=== PATIENT | male | born 1960 | race Caucasian/White ===

== ENCOUNTER → 2018-09-13 | Day surgery (SDC) | payer OTHER ==
[2018-09-10 08:13] VITALS: BMI 34.9
[~2018-09-13] MED LIST: LACTATED RINGERS 1,000 ML IV ONE; LACTATED RINGERS 1,000 ML IV SCH; LIDOCAINE 1% 20 ML VIAL (10MG/ML) FOR IV START INTRADERMA ONE; LIDOCAINE 1% INJ 10MG/ML (20 ML MDV) ONE; PROPOFOL 10 MG/ML 20 ML VIAL IV ONE
[2018-09-13 10:36] VITALS: RESP 18; TEMP 97.8
[2018-09-13 10:45] LABS: Glucose,Whole Blood 112 mg/dL (75-99)
[2018-09-13 12:50] VITALS: BP 138/82; PULSE 56
--- NOTE | 2018-09-13 13:36 | P.PCN ---
Date of Procedure: 09/13/18 Procedure(s) Performed: Procedure: Colonoscopy and polypectomy. Preoperative diagnosis: Screening for neoplasia. Postoperative diagnosis: 1. Small right colon polyp snared but no large polyps or cancer. 2. Low-grade internal hemorrhoids without bleeding at the time of this exam. Preparation: HalfLytely prep. Sedation: Was provided by anesthesia. Brief clinical history: The patient is a 58-year-old male who is scheduled for this evaluation for screening for neoplasia. The patient had a prior exam in 2011. He has no abdominal complaints, bleeding or anemia. He has been reporting some fatigability. Procedure: With the patient on his left lateral decubitus position and after informed consent and adequate sedation, the perianal area was inspected and it did not show any fissures or fistulas. There were no masses felt on digital rectal examination. The Olympus CFH 190L video colonoscope was then inserted in the rectum in the usual fashion and advanced to the cecum. There was a small polyp in the right colon which was snared and retrieved by suction but there were no large polyps or cancer. No obvious diverticular disease or other pathology. I retroflexed the endoscope in the rectum before the endoscope was withdrawn. Low-grade internal hemorrhoids were noted with no evidence of bleeding. The patient tolerated the procedure well. Plan: The patient was reassured. Discussed dietary measures and local care for hemorrhoids. He will follow up with you as planned and I recommended repeat exam in 5 years.
== END | disposition home or self-care (01) ==
LOC: ORWHC2ENDO 10:13
DX: Z12.11 Encounter for screening for malignant neoplasm of colon (principal); K64.8 Other hemorrhoids; D12.2 Benign neoplasm of ascending colon; E11.9 Type 2 diabetes mellitus without complications; E78.5 Hyperlipidemia, unspecified; M19.90 Unspecified osteoarthritis, unspecified site; G47.33 Obstructive sleep apnea (adult) (pediatric); F32.9 Major depressive disorder, single episode, unspecified; Z79.899 Other long term (current) drug therapy
CPT/HCPCS: 88305; 45385; J2001; J2704

== ENCOUNTER → 2020-04-13 | Outpatient (CLI) | payer OTHER | END | disposition home or self-care (01) | LOC: LABWHC1 13:40 | PROVIDERS: ATTEND Nurse Practitioner Family | DX: Z20.822 Contact with and (suspected) exposure to COVID-19 (principal); J02.9 Acute pharyngitis, unspecified; R06.02 Shortness of breath; R06.2 Wheezing | CPT/HCPCS: U0003; C9803; U0005 ==

== ENCOUNTER → 2021-02-22 | Outpatient (CLI) | payer OTHER | END | disposition home or self-care (01) | LOC: LABPAT 11:07 | PROVIDERS: ATTEND Orthopaedic Surgery | DX: Z01.812 Encounter for preprocedural laboratory examination (principal); M17.12 Unilateral primary osteoarthritis, left knee | CPT/HCPCS: 87070 ==

== ENCOUNTER → 2021-02-27 | Outpatient (CLI) | payer OTHER ==
[2021-02-27 16:54] LABS: Basophils # (A) 0.1 k/uL (0-0.2); Basophils % (A) 2 %; Eosinophils # (A) 0.1 k/uL (0-0.7); Eosinophils % (A) 2 %; HGB 15.7 gm/dL (13.0-17.5); Lymphocytes # (A) 2.3 k/uL (1.0-4.8); Lymphocytes % (A) 50 %; MCH 31.6 pg (25.0-35.0); MCHC 34.8 g/dL (31.0-37.0); MCV 90.7 fL (80.0-100.0); Mean Platelet Volume 8.8; Monocytes # (A) 0.4 k/uL (0-1.0); Monocytes % (A) 9 %; Neutrophils # (A) 1.7 k/uL (1.3-7.7); Neutrophils % (A) 36 %; Platelet Count 218 k/uL (150-450); RBC 4.96 m/uL (4.30-5.90); RDW 14.2 % (11.5-15.5); WBC 4.6 k/uL (3.8-10.6)
[2021-02-27 17:03] LABS: Calcium 9.5 mg/dL (8.4-10.2); Potassium 3.8 mmol/L (3.5-5.1)
[2021-02-27 17:21] LABS: INR 0.9 (<1.2); Prothrombin Time 10.1 sec (9.0-12.0)
== END | disposition home or self-care (01) ==
LOC: LABPAT 15:55
PROVIDERS: ATTEND Orthopaedic Surgery
DX: Z01.812 Encounter for preprocedural laboratory examination (principal); M17.12 Unilateral primary osteoarthritis, left knee
CPT/HCPCS: 80048; 85025; 85610

== ENCOUNTER 2021-04-05 19:13 | Inpatient (IN) | payer OTHER ==
[2021-04-05] MEDS ORDERED: SODIUM CHLORIDE 0.9% 1,000 ML IV ONE (19:26)
[2021-04-05] MEDS ORDERED: IBUPROFEN 600 MG TAB PO STA (19:27)
[2021-04-05] MEDS ORDERED: ACETAMINOPHEN TAB 500 MG TAB PO STA (19:27)
[2021-04-05] MEDS ORDERED: SODIUM CHLORIDE 0.9% 500 ML 500 ML IV ONE (19:28)
--- NOTE | 2021-04-05 19:31 | ED ---
General Adult HPI - General Source: patient, EMS, RN notes reviewed, old records reviewed Mode of arrival: EMS Limitations: physical limitation <Danny Justin - Last Filed: 04/05/21 21:12> <Danny Osman - Last Filed: 04/05/21 22:42> - General Chief complaint: Shortness of Breath Stated complaint: SOB Time Seen by Provider: 04/05/21 19:15 - History of Present Illness Initial comments: This is a 61-year-old male who presents emergency Department stating at 17 days ago he had knee surgery in the left knee. No longer on any anticoagulants. Patient comes in today because he has been having pain in the right shoulder and pain with deep breathing. Patient states she also feels short of breath. Candy ent denies chest pain or palpitations. Patient states the symptoms ongoing for the last few days. Patient denies any abdominal pain patient has nausea vomiting diarrhea. Patient denies headache patient denies numbness weakness. Patient states he's had the vaccines and the booster. (Danny Justin) - Related Data Home Medications Medication Instructions Recorded Confirmed Atorvastatin [Lipitor] 20 mg PO DAILY 11/15/19 04/05/21 PARoxetine HCL [Paxil] 40 mg PO DAILY 11/15/19 04/05/21 buPROPion HCL [Wellbutrin XL] 150 mg PO DAILY 11/15/19 04/05/21 hydroCHLOROthiazide [Hydrodiuril] 25 mg PO DAILY 11/15/19 04/05/21 lisinopriL [Zestril] 20 mg PO DAILY 11/15/19 04/05/21 hydrOXYzine HCL 25 mg PO BID 03/18/21 04/05/21 HYDROcodone/APAP 7.5-325MG [[place] 1 - 2 tab PO Q6HR PRN 04/05/21 04/05/21 7.5] metFORMIN HCL [Glucophage] 500 mg PO DAILY 04/05/21 04/05/21 Previous Rx's Medication Instructions Recorded traMADol HCl [Ultram] 50 mg PO Q6H PRN #24 tab 03/20/21 Allergies Allergy/AdvReac Type Severity Reaction Status Date / Time No Known Allergies Allergy Verified 04/05/21 21:55 Review of Systems ROS Other: All systems not noted in ROS Statement are negative. <Danny Justin - Last Filed: 04/05/21 21:12> ROS Other: All systems not noted in ROS Statement are negative. <Danny Osman Mikayla - Last Filed: 04/05/21 22:42> ROS Statement: Those systems with pertinent positive or pertinent negative responses have been documented in the HPI. Past Medical History Past Medical History: Diabetes Mellitus, Hyperlipidemia, Hypertension, Osteoarthritis (OA), Sleep Apnea/CPAP/BIPAP Additional Past Medical History / Comment(s): no cpap used, left knee pain History of Any Multi-Drug Resistant Organisms: None Reported Past Surgical History: Heart Catheterization, Orthopedic Surgery Additional Past Surgical History / Comment(s): juno knee arthroscopies, multiple left hand surgeries after injury Past Anesthesia/Blood Transfusion Reactions: Motion Sickness, Postoperative Nausea & Vomiting (PONV) Additional Past Anesthesia/Blood Transfusion Reaction / Comment(s): motion sickness when younger Past Psychological History: Anxiety, Depression Smoking Status: Former smoker Past Alcohol Use History: Occasional Past Drug Use History: None Reported - Past Family History Mother Family Medical History: No Reported History <Danny uJstin - Last Filed: 04/05/21 21:12> General Exam Limitations: physical limitation <JustinDanny - Last Filed: 04/05/21 21:12> General appearance: alert, in no apparent distress, anxious Head exam: Present: atraumatic, normocephalic, normal inspection Eye exam: Present: normal appearance, PERRL, EOMI. Absent: scleral icterus, conjunctival injection, periorbital swelling ENT exam: Present: normal exam, mucous membranes moist Neck exam: Present: normal inspection. Absent: tenderness, meningismus, lymphadenopathy Respiratory exam: Present: decreased breath sounds, prolonged expiratory. Absent: normal lung sounds bilaterally, respiratory distress, wheezes, rales, rhonchi, stridor Cardiovascular Exam: Present: regular rate, normal rhythm, normal heart sounds. Absent: systolic murmur, diastolic murmur, rubs, gallop, clicks GI/Abdominal exam: Present: soft, normal bowel sounds. Absent: distended, tenderness, guarding, rebound, rigid Extremities exam: Present: normal inspection, full ROM, normal capillary refill. Absent: tenderness, pedal edema, joint swelling, calf tenderness Back exam: Present: normal inspection Neurological exam: Present: alert, oriented X3, CN II-XII intact Psychiatric exam: Present: normal affect, normal mood Skin exam: Present: warm, dry, intact, normal color. Absent: rash <Danny Osman - Last Filed: 04/05/21 22:42> - General Exam Comments Initial Comments: GENERAL: Patient is well-developed and well-nourished. Patient is nontoxic and well- hydrated and is in mild distress. ENT: Neck is soft and supple. No significant lymphadenopathy is noted. Oropharynx is clear. Moist mucous membranes. Neck has full range of motion without eliciting any pain. EYES: The sclera were anicteric and conjunctiva were pink and moist. Extraocular movements were intact and pupils were equal round and reactive to light. Eyelids were unremarkable. PULMONARY: Unlabored respirations. Good breath sounds bilaterally. No audible rales rhonchi or wheezing was noted. CARDIOVASCULAR: There is a regular rate and rhythm without any murmurs gallops or rubs. ABDOMEN: Soft and nontender with normal bowel sounds. SKIN: Skin is clear with no lesions or rashes and otherwise unremarkable. NEUROLOGIC: Patient is alert and oriented x3. Cranial nerves II through XII are grossly intact. Motor and sensory are also intact. Normal speech, volume and content. Symmetrical smile. MUSCULOSKELETAL: Normal extremities with adequate strength and full range of motion. Incision on the left knee appears to be healing well there is no signs of infection. LYMPHATICS: No significant lymphadenopathy is noted PSYCHIATRIC: Normal psychiatric evaluation. (Danny Justin) Course <Danny Osman - Last Filed: 04/05/21 22:42> Vital Signs 04/05/21 04/05/21 19:14 19:21 Temperature 101.9 F H Pulse Rate 93 Respiratory 20 24 Rate Blood Pressure 138/89 O2 Sat by Pulse 92 L Oximetry - Reevaluation(s) Reevaluation #1: 04/05/21 22:40 medical record is reviewed (Danny Osman) Reevaluation #2: 04/05/21 22:40 symptoms improved patient is in no acute distress (Danny Osman) Reevaluation #3: 04/05/21 22:40 patient informed of results and questions are answered (Danny Osman) - Consultations Consultation #1: spoke with [facility] physicians who agree to admit the patient (Danny Osman) Medical Decision Making - Lab Data Result diagrams: 04/05/21 19:32 04/05/21 19:32 <Danny Justin - Last Filed: 04/05/21 21:12> - Lab Data Result diagrams: 04/05/21 19:32 04/05/21 19:32 - Radiology Data Radiology results: report reviewed (CTa positive for significant right-sided right lower lobe PE with infarct), image reviewed <Danny Osman - Last Filed: 04/05/21 22:42> - Medical Decision Making EKG shows sinus rhythm with occasional PVC at 91 bpm ME interval 148 QRS is 70 QT interval 310 QTC is 381 per patient's EKG shows no ST segment elevation however there is T-wave inversions in the inferior leads as well as V4 V5 and V6. Jacqui taking over the care of this patient at 9 PM (Danny Justin) 61 male to the emergency department todayF for evaluation patient presented today for evaluation of right-sided rib pain chest pain shortness of breath, patient was found to have fever patient is 2 weeks postop knee surgery, positive for PE will place on antibiotics secondary to concurrent fever, patient placed on heparin for PE and will see vascular surgery (Danny Osman) - Lab Data Lab Results 04/05/21 04/05/21 04/05/21 Range/Units 19:32 19:32 19:32 WBC 8.5 (3.8-10.6) k/uL RBC 3.92 L (4.30-5.90) m/uL Hgb 12.2 L D (13.0-17.5) gm/dL Hct 37.3 L (39.0-53.0) % MCV 95.3 (80.0-100.0) fL MCH 31.2 (25.0-35.0) pg MCHC 32.7 (31.0-37.0) g/dL RDW 14.7 (11.5-15.5) % Plt Count 306 (150-450) k/uL MPV 7.6 Neutrophils % 74 % Lymphocytes % 16 % Monocytes % 8 % Eosinophils % 0 % Basophils % 1 % Neutrophils # 6.3 (1.3-7.7) k/uL Lymphocytes # 1.3 (1.0-4.8) k/uL Monocytes # 0.7 (0-1.0) k/uL Eosinophils # 0.0 (0-0.7) k/uL Basophils # 0.0 (0-0.2) k/uL Sodium 134 L (137-145) mmol/L Potassium 3.9 (3.5-5.1) mmol/L Chloride 98 (98-107) mmol/L Carbon Dioxide 26 (22-30) mmol/L Anion Gap 10 mmol/L BUN 21 H (9-20) mg/dL Creatinine 0.97 (0.66-1.25) mg/dL Est GFR (CKD-EPI)AfAm >90 (>60 ml/min/1.73 sqM) Est GFR (CKD-EPI)NonAf 85 (>60 ml/min/1.73 sqM) Glucose 152 H (74-99) mg/dL Calcium 9.1 (8.4-10.2) mg/dL Total Bilirubin 0.8 (0.2-1.3) mg/dL AST 34 (17-59) U/L ALT 31 (4-49) U/L Alkaline Phosphatase 120 (38-126) U/L Troponin I (0.000-0.034) ng/mL Total Protein 7.0 (6.3-8.2) g/dL Albumin 3.6 (3.5-5.0) g/dL Coronavirus (PCR) Not Detected (Not Detectd) 04/05/21 Range/Units 19:32 WBC (3.8-10.6) k/uL RBC (4.30-5.90) m/uL Hgb (13.0-17.5) gm/dL Hct (39.0-53.0) % MCV (80.0-100.0) fL MCH (25.0-35.0) pg MCHC (31.0-37.0) g/dL RDW (11.5-15.5) % Plt Count (150-450) k/uL MPV Neutrophils % % Lymphocytes % % Monocytes % % Eosinophils % % Basophils % % Neutrophils # (1.3-7.7) k/uL Lymphocytes # (1.0-4.8) k/uL Monocytes # (0-1.0) k/uL Eosinophils # (0-0.7) k/uL Basophils # (0-0.2) k/uL Sodium (137-145) mmol/L Potassium (3.5-5.1) mmol/L Chloride (98-107) mmol/L Carbon Dioxide (22-30) mmol/L Anion Gap mmol/L BUN (9-20) mg/dL Creatinine (0.66-1.25) mg/dL Est GFR (CKD-EPI)AfAm (>60 ml/min/1.73 sqM) Est GFR (CKD-EPI)NonAf (>60 ml/min/1.73 sqM) Glucose (74-99) mg/dL Calcium (8.4-10.2) mg/dL Total Bilirubin (0.2-1.3) mg/dL AST (17-59) U/L ALT (4-49) U/L Alkaline Phosphatase (38-126) U/L Troponin I 0.015 (0.000-0.034) ng/mL Total Protein (6.3-8.2) g/dL Albumin (3.5-5.0) g/dL Coronavirus (PCR) (Not Detectd) Critical Care Time Critical Care Time: Yes Total Critical Care Time: 31 <Danny Osman - Last Filed: 04/05/21 22:42> Disposition <Danny Justin - Last Filed: 04/05/21 21:12> Is patient prescribed a controlled substance at d/c from ED?: No <Danny Osman - Last Filed: 04/05/21 22:42> Clinical Impression: Fever, Postoperative pain, Pulmonary embolism and infarction Disposition: ADMITTED IP TO THIS HOSP Condition: Serious Referrals: Lourdes Hinkle MD [Primary Care Provider] - 1-2 days
[2021-04-05 19:50] LABS: Basophils % (A) 1 %; Eosinophils % (A) 0 %; HCT 37.3 % (39.0-53.0); Lymphocytes # (A) 1.3 k/uL (1.0-4.8); Lymphocytes % (A) 16 %; MCH 31.2 pg (25.0-35.0); MCHC 32.7 g/dL (31.0-37.0); MCV 95.3 fL (80.0-100.0); Mean Platelet Volume 7.6; Monocytes # (A) 0.7 k/uL (0-1.0); Monocytes % (A) 8 %; Neutrophils # (A) 6.3 k/uL (1.3-7.7); Neutrophils % (A) 74 %; Platelet Count 306 k/uL (150-450); RBC 3.92 m/uL (4.30-5.90); RDW 14.7 % (11.5-15.5); WBC 8.5 k/uL (3.8-10.6)
--- NOTE | 2021-04-05 19:57 | XR ---
EXAMINATION TYPE: XR chest 1V portable DATE OF EXAM: 04/05/2021 COMPARISON: 04/24/2020 HISTORY: Short of breath TECHNIQUE: Single view FINDINGS: There is some mild subsegmental atelectasis at the lung bases. There is poor inspiration. T here is no heart failure. Heart size is normal. There are no hilar masses. IMPRESSION: Mild subsegmental atelectasis and interstitial density is mostly new compared to old exam . Normal heart.
[2021-04-05 20:00] LABS: HGB 12.2 gm/dL (13.0-17.5)
[2021-04-05 20:06] LABS: ALT 31 U/L (4-49); AST 34 U/L (17-59); African American GFR (CKD) >90 (>60 ml/min/1.73 sqM); Albumin 3.6 g/dL (3.5-5.0); Alkaline Phosphatase 120 U/L (38-126); Anion Gap 10 mmol/L; Blood Urea Nitrogen 21 mg/dL (9-20); Calcium 9.1 mg/dL (8.4-10.2); Carbon Dioxide 26 mmol/L (22-30); Chloride 98 mmol/L (98-107); Glucose 152 mg/dL (74-99); Non-African American GFR(CKD) 85 (>60 ml/min/1.73 sqM); Potassium 3.9 mmol/L (3.5-5.1); Sodium 134 mmol/L (137-145); Total Bilirubin 0.8 mg/dL (0.2-1.3)
--- NOTE | 2021-04-05 22:18 | CT ---
EXAMINATION TYPE: CT chest angio for PE DATE OF EXAM: 04/05/2021 COMPARISON: None HISTORY: PE CT DLP: 898.7 mGycm Automated exposure control for dose reduction was used. CONTRAST: Performed with IV Contrast, patient injected with 100 mL of Isovue 370. Images obtained from the thoracic inlet to the diaphragm with IV contrast. There are 3-D post processed images. There is some mild infiltrate and atelectasis at both posterior lung bases. Heart size is normal. The re is no pericardial effusion. There is no pleural effusion. There is minimal pleural thickening righ t posterior lung base. There is no mediastinal adenopathy. There are no hilar masses. There are multiple filling defects in the right lower lobe pulmonary artery. The thoracic spine is intact. There is no compression fracture. Sternum is intact. Visualized upper a bdominal soft tissues are intact. IMPRESSION: Large emboli in the right lower lobe pulmonary artery branches extending into the origin of the right lower lobe pulmonary artery. Infiltrates in the right lower lobe with pleural thickening consistent with pulmonary infarct. No evidence of right heart strain. Normal heart. Exam was discussed with emergency room staff at 10:15 PM.
[2021-04-05] MEDS ORDERED: HEPARIN SODIUM 1,000 UN/ML (10ML VL) IV PRN (22:32)
[2021-04-05] MEDS ORDERED: HEPARIN SODIUM 1,000 UN/ML (10ML VL) IV ONE (22:32)
[2021-04-05] MEDS ORDERED: NALOXONE 0.4 MG/ML 1 ML VIAL IV PRN (22:32)
[2021-04-05] MEDS ORDERED: ACETAMINOPHEN TAB 325 MG TAB PO PRN (22:32)
[2021-04-05] MEDS ORDERED: ONDANSETRON 4 MG/2 ML VIAL IVP PRN (22:32)
[2021-04-05] MEDS ORDERED: IBUPROFEN 400 MG TAB PO PRN (22:32)
[2021-04-05] MEDS ORDERED: KETOROLAC 15 MG/ML 1 ML VIAL IVP STA (22:37)
[2021-04-05] MEDS ORDERED: AZITHROMYCIN 500 MG in SODIUM CHLORIDE 0.9% 250 ML IVPB ONE (23:00)
[2021-04-05] MEDS: HEPARIN SOD,PORK IN 0.45% NACL 25,000 UNIT in 0.45% NACL 1 250ML.BAG IV SCH (23:12)
[2021-04-05] MEDS: SODIUM CHLORIDE 0.9% 1,000 ML IV SCH (23:18)
[2021-04-06] MEDS: MORPHINE SULFATE 4 MG/ML SYRINGE IV PRN ×3 (01:29→21:33)
--- NOTE | 2021-04-06 05:47 | P.HPIM ---
History of Present Illness H&P Date: 04/05/21 Chief Complaint: Right-sided shoulder pain 61-year-old male with hypertension diabetes mellitus Patient comes in with right-sided shoulder pain for the past 3 days patient re calls having right knee surgery about 2-3 weeks ago for right knee replacement. He was briefly on anticoagulation postop. Patient comes in having some fevers and right shoulder pain worse with deep breaths and movement. He also reports shortness of breath with walking moving short distances also reports some coughing Patient denies any hemoptysis denies any GI bleeding patient denies any sick contacts recent travel. Patient quit smoking 18 years ago he denies any drug abuse and he would occasionally drinks. Patient is vaccinated and boosted against Covid In the ED upon further evaluation found to have right-sided PE with right-sided pulmonary infarct with no evidence of right heart strain patient admitted for evaluation by vascular surgery and started on heparin drip. Patient denies any history of DVT Review of Systems Pertinent positives as noted in HPI. All other systems were reviewed and are negative Past Medical History Past Medical History: Diabetes Mellitus, Hyperlipidemia, Hypertension, Osteoa rthritis (OA), Sleep Apnea/CPAP/BIPAP Additional Past Medical History / Comment(s): no cpap used, left knee pain History of Any Multi-Drug Resistant Organisms: None Reported Past Surgical History: Heart Catheterization, Orthopedic Surgery Additional Past Surgical History / Comment(s): juno knee arthroscopies, multiple left hand surgeries after injury Past Anesthesia/Blood Transfusion Reactions: Motion Sickness, Postoperative Nausea & Vomiting (PONV) Additional Past Anesthesia/Blood Transfusion Reaction / Comment(s): motion sickness when younger Past Psychological History: Anxiety, Depression Smoking Status: Former smoker Past Alcohol Use History: Occasional Additional Past Alcohol Use History / Comment(s): quit smoking 20 yrs ago, smoked for < 1 yr Past Drug Use History: None Reported - Past Family History Mother Family Medical History: No Reported History Medications and Allergies Home Medications Medication Instructions Recorded Confirmed Type Atorvastatin [Lipitor] 20 mg PO DAILY 11/15/19 04/05/21 History PARoxetine HCL [Paxil] 40 mg PO DAILY 11/15/19 04/05/21 History buPROPion HCL [Wellbutrin XL] 150 mg PO DAILY 11/15/19 04/05/21 History hydroCHLOROthiazide [Hydrodiuril] 25 mg PO DAILY 11/15/19 04/05/21 History lisinopriL [Zestril] 20 mg PO DAILY 11/15/19 04/05/21 History hydrOXYzine HCL 25 mg PO BID 03/18/21 04/05/21 History traMADol HCl [Ultram] 50 mg PO Q6H PRN #24 tab 03/20/21 04/05/21 Rx HYDROcodone/APAP 7.5-325MG [[place] 1 - 2 tab PO Q6HR PRN 04/05/21 04/05/21 History 7.5] metFORMIN HCL [Glucophage] 500 mg PO DAILY 04/05/21 04/05/21 History Allergies Allergy/AdvReac Type Severity Reaction Status Date / Time No Known Allergies Allergy Verified 04/05/21 21:55 Physical Exam Vitals: Vital Signs Temp Pulse Resp BP Pulse Ox 04/06/21 03:12 69 18 114/59 94 L 04/06/21 02:17 98.7 F 04/06/21 01:36 76 18 118/68 95 04/06/21 00:08 67 18 120/62 96 04/05/21 19:21 24 04/05/21 19:14 101.9 F H 93 20 138/89 92 L Intake and Output 04/05/21 04/05/21 04/06/21 14:59 22:59 06:59 Other: Weight 131.542 kg 131.542 kg Constitutional: No acute distress, conversant, pleasant Eyes: Anicteric sclerae, moist conjunctiva, Pupils equal round reactive to light ENMT: NC/AT Oropharynx clear, no erythema, or exudates Neck: Supple, , no masses, or JVD No carotid bruits No thyromegaly Lungs: Clear to auscultation Clear to percussion Normal respiratory effort, no accessory muscle use Cardiovascular: Heart regular in rate and rhythm, No murmurs, gallops, or rubs No peripheral edema Abdominal: Soft Nontender, no guarding, rebound or rigidity Abdomen moving with respiration Normoactive bowel sounds No hepatomegaly, No splenomegaly No palpable mass No abdominal wall hernia noted Skin: Normal temperature, tone, texture, turgor No induration No subcutaneous nodules No rash, lesions No ulcers Extremities: No digital cyanosis No clubbing Pedal pulses intact and symmetrical Radial pulses intact and symmetrical No calf tenderness Psychiatric: Alert and oriented to person, place and time Appropriate affect fair judgement Neuro Muscles Strength 5/5 in all 4 extremities Sensation to light touch grossly present throughout Cranial nerves II-XII grossly intact No focal sensory deficits Lymphatics: no palpable cervical or supraclavicular , or inguinal lymph nodes Results CBC & Chem 7: 04/05/21 19:32 04/05/21 19:32 Labs: Abnormal Lab Results - Last 24 Hours (Table) 04/05/21 04/05/21 Range/Units 19:32 19:32 RBC 3.92 L (4.30-5.90) m/uL Hgb 12.2 L D (13.0-17.5) gm/dL Hct 37.3 L (39.0-53.0) % Sodium 134 L (137-145) mmol/L BUN 21 H (9-20) mg/dL Glucose 152 H (74-99) mg/dL Thrombosis Risk Factor Assmnt - Choose All That Apply Any of the Below Risk Factors Present?: Yes Each Factor Represents 1 point: Age 41-60 years, History of prior major surgery (<1month), Obesity (BMI >25) Thrombosis Risk Factor Assessment Total Risk Factor Score: 3 Thrombosis Risk Factor Assessment Level: Moderate Risk Assessment and Plan Assessment: Acute PE provoked by recent surgery Patient initiated on heparin drip IV fluid hydration normal saline Monitor vital signs Cardiac monitoring Past surgery evaluation Echocardiogram CT angiogram the chest showed right pulmonary infarct with right PE no evidence of RV strain Doppler and oxygen as needed Pain control Chronic conditions Diabetes mellitus, insulin sliding scale Hypertension resume the pressure meds Patient is full code Hospital stay less than 2 midnights Anticipated discharge home DVT prophylaxis on heparin drip for PE
[2021-04-06] MEDS: SODIUM CHLORIDE 0.9% 1,000 ML IV SCH ×3 (07:05→23:37)
[2021-04-06 07:12] LABS: Glucose,Whole Blood 150 mg/dL (75-99)
[2021-04-06 07:13] LABS: Basophils % (A) 1 %; Eosinophils # (A) 0.1 k/uL (0-0.7); Eosinophils % (A) 1 %; HGB 10.2 gm/dL (13.0-17.5); Hypochromasia Slight; Lymphocytes # (A) 1.2 k/uL (1.0-4.8); Lymphocytes % (A) 24 %; MCH 31.5 pg (25.0-35.0); MCV 95.6 fL (80.0-100.0); Mean Platelet Volume 8.4; Monocytes # (A) 0.7 k/uL (0-1.0); Monocytes % (A) 13 %; Neutrophils % (A) 60 %; Platelet Count 221 k/uL (150-450); RBC 3.24 m/uL (4.30-5.90); RDW 14.3 % (11.5-15.5); WBC 5.1 k/uL (3.8-10.6)
[2021-04-06] MEDS: INSULIN ASPART (NovoLOG) 100 UNIT/ML VIAL SQ SCH ×4 (07:15→21:03)
[2021-04-06 07:24] LABS: ALT 23 U/L (4-49); AST 23 U/L (17-59); African American GFR (CKD) >90 (>60 ml/min/1.73 sqM); Albumin 2.6 g/dL (3.5-5.0); Alkaline Phosphatase 99 U/L (38-126); Anion Gap 4 mmol/L; Blood Urea Nitrogen 17 mg/dL (9-20); Calcium 8.3 mg/dL (8.4-10.2); Carbon Dioxide 27 mmol/L (22-30); Chloride 102 mmol/L (98-107); Glucose 159 mg/dL (74-99); Magnesium 1.8 mg/dL (1.6-2.3); Non-African American GFR(CKD) >90 (>60 ml/min/1.73 sqM); Phosphorus 3.6 mg/dL (2.5-4.5); Potassium 3.6 mmol/L (3.5-5.1); Sodium 133 mmol/L (137-145); Total Bilirubin 0.7 mg/dL (0.2-1.3); Total Protein 5.7 g/dL (6.3-8.2)
[2021-04-06 08:39] LABS: Appearance,Urine Clear (Clear); Bilirubin,Urine Negative (Negative); Blood,Urine Negative (Negative); Color,Urine Yellow; Glucose,Urine (UA) Negative (Negative); Ketones,Urine Negative (Negative); Leukocyte Esterase,Urine Negative (Negative); Nitrite,Urine Negative (Negative); PH, Urine 5.5 (5.0-8.0); Protein,Urine Trace (Negative); Specific Gravity,Urine 1.036 (1.001-1.035); Urobilinogen,Urine <2.0 mg/dL (<2.0)
[2021-04-06] MEDS: hydroCHLOROthiazide 25 MG TAB PO SCH (08:49)
[2021-04-06] MEDS: buPROPion XL 150 MG TAB.ER.24H PO SCH (08:49)
[2021-04-06] MEDS: PARoxetine 20 MG TAB PO SCH (08:50)
[2021-04-06] MEDS: lisinopriL 20 MG TAB PO SCH (08:50)
[2021-04-06] MEDS: hydrOXYzine HCL 25 MG TAB PO SCH ×2 (08:50→21:03)
[2021-04-06] MEDS: ATORVASTATIN 20 MG TAB PO SCH (08:50)
[2021-04-06] MEDS: HEPARIN SOD,PORK IN 0.45% NACL 25,000 UNIT in 0.45% NACL 1 250ML.BAG IV SCH (09:20)
--- NOTE | 2021-04-06 11:00 | ECHOF ---
Referral Reason:PE MEASUREMENTS -------- HEIGHT: 180.3 cm WEIGHT: 131.5 kg BP: RVIDd: 3.4 cm (< 3.3) IVSd: 1.4 cm (0.6 - 1.1) LVIDd: 3.8 cm (3.9 - 5.3) LVPWd: 1.6 cm (0.6 - 1.1) IVSs: 1.9 cm LVIDs: 2.2 cm LVPWs: 2.2 cm Ao Diam: 3.2 cm (2.0 - 3.7) AV Cusp: 2.2 cm (1.5 - 2.6) LA Diam: 2.4 cm (2.7 - 3.8) MV EXCURSION: 13.275 mm (> 18.000) MV EF SLOPE: 118 mm/s (70 - 150) EPSS: 0.9 cm MV E Polo: 0.75 m/s MV DecT: 224 ms MV A Polo: 0.87 m/s MV E/A Ratio: 0.86 RAP: 5.00 mmHg RVSP: 14.00 mmHg FINDINGS -------- This was a technically difficult study with suboptimal views. The left ventricular size is normal. There is moderate concentric left ventricular hypertrophy. O verall left ventricular systolic function is low-normal with, an EF between 50 - 55 %. The right ventricle is mildly enlarged. The left atrial size is normal. The right atrial size is normal. Lumason used The aortic valve is trileaflet and appears structurally normal. The mitral valve is normal. There is trace mitral regurgitation. The tricuspid valve appears structurally normal. Trace tricuspid regurgitation present. Right roopa tricular systolic pressure is normal at < 35 mmHg. The pulmonic valve was not well visualized. The aortic root size is normal. Normal inferior vena cava with normal inspiratory collapse consistent with estimated right atrial pre ssure of 5 mmHg. There is no pericardial effusion. CONCLUSIONS -------- 1. The left ventricular size is normal. 2. There is moderate concentric left ventricular hypertrophy. 3. Overall left ventricular systolic function is low-normal with, an EF between 50 - 55 %. 4. The right ventricle is mildly enlarged. 5. There is trace mitral regurgitation. 6. Trace tricuspid regurgitation present. 7. There is no pericardial effusion. INTERVENTIONAL SALE CONSULTANT: Uzma Mcdermott WHITNEY
--- NOTE | 2021-04-06 11:09 | P.PN ---
Subjective Progress Note Date: 04/06/21 Principal diagnosis: Sob Patient is feeling much better than yesterday. His last fever was last evening, he is 99.1 this am. Breathing is improved and he is ambulating without dif ficulties. He still has cough and pleuritic chest pain. Objective - Vital Signs Vital signs: Vital Signs Temp 98.3 F 04/06/21 04:08 Pulse 65 04/06/21 04:08 Resp 20 04/06/21 04:08 BP 115/63 04/06/21 04:08 Pulse Ox 97 04/06/21 04:08 Intake & Output 04/05/21 04/06/21 04/06/21 18:59 06:59 18:59 Intake Total 413.269 Balance 413.269 Weight 131.542 kg Intake: Intake, IV Titration 233.269 Amount Heparin Sod,Pork in 0.45% 233.269 NaCl 25,000 unit In 0.45 % NaCl 1 250ml.bag @ 17.5 UNITS/KG/HR 23.02 mls/hr IV .[id number] [facility] Rx#: [id number] Oral 180 Other: Voiding Method Toilet # Voids 1 - Exam Constitutional: No acute distress, conversant, pleasant Eyes:Anicteric sclerae, moist conjunctiva, no lid-lag, PERRLA, ENMT: Oropharynx clear, no erythema, exudates Neck: Supple, FROM, no masses, or JVD, No carotid bruits, No thyromegaly Lungs: Clear to auscultation, Clear to percussion, Normal respiratory effort, no accessory muscle use Cardiovascular: Heart regular in rate and rhythm, No murmurs, gallops, or rubs, No peripheral edema Abdominal: Soft, Nontender, no guarding, rebound or rigidity, Normoactive bowel sounds, No hepatomegaly, No splenomegaly, No palpable mass Skin: Normal temperature, tone, texture, turgor, no induration, No subcutaneous nodules, No rash, lesions, No ulcers Extremities: No digital cyanosis, No clubbing, Pedal pulses intact and symmetric al, Radial pulses intact and symmetrical, No calf tenderness Psychiatric: Alert and oriented to person, place and time, appropriate affect, intact judgement Neuro: Muscles Strength 5/5 in all 4 extremities, Sensation to light touch grossly present throughout, Cranial nerves II-XII grossly intact, no focal sensory deficits - Labs CBC & Chem 7: 04/06/21 05:44 04/06/21 05:44 Labs: Abnormal Lab Results - Last 24 Hours (Table) 04/05/21 04/05/21 04/05/21 Range/Units 08:36 19:32 19:32 RBC 3.92 L (4.30-5.90) m/uL Hgb 12.2 L D (13.0-17.5) gm/dL Hct 37.3 L (39.0-53.0) % APTT (22.0-30.0) sec Sodium 134 L (137-145) mmol/L BUN 21 H (9-20) mg/dL Glucose 152 H (74-99) mg/dL POC Glucose (mg/dL) (75-99) mg/dL Calcium (8.4-10.2) mg/dL Total Protein (6.3-8.2) g/dL Albumin (3.5-5.0) g/dL Ur Specific [place] 1.036 H (1.001-1.035) Urine Protein Trace H (Negative) 04/06/21 04/06/21 04/06/21 Range/Units 05:44 05:44 05:44 RBC 3.24 L (4.30-5.90) m/uL Hgb 10.2 L (13.0-17.5) gm/dL Hct 31.0 L (39.0-53.0) % APTT 62.4 H (22.0-30.0) sec Sodium 133 L (137-145) mmol/L BUN (9-20) mg/dL Glucose 159 H (74-99) mg/dL POC Glucose (mg/dL) (75-99) mg/dL Calcium 8.3 L (8.4-10.2) mg/dL Total Protein 5.7 L (6.3-8.2) g/dL Albumin 2.6 L (3.5-5.0) g/dL Ur Specific [place] (1.001-1.035) Urine Protein (Negative) 04/06/21 Range/Units 07:11 RBC (4.30-5.90) m/uL Hgb (13.0-17.5) gm/dL Hct (39.0-53.0) % APTT (22.0-30.0) sec Sodium (137-145) mmol/L BUN (9-20) mg/dL Glucose (74-99) mg/dL POC Glucose (mg/dL) 150 H (75-99) mg/dL Calcium (8.4-10.2) mg/dL Total Protein (6.3-8.2) g/dL Albumin (3.5-5.0) g/dL Ur Specific [place] (1.001-1.035) Urine Protein (Negative) Assessment and Plan Plan: Acute PE provoked by recent surgery Patient initiated on heparin drip IV fluid hydration normal saline Monitor vital signs Cardiac monitoring CT angiogram the chest showed right pulmonary infarct with right PE no evidence of RV strain Echo with low normal EF. Doppler and oxygen as needed Pain control Fever/sepsis Sec to community aquired pneumonia Resume abx Follow up blood cx. Chronic conditions Diabetes mellitus, insulin sliding scale Hypertension resume the pressure meds Anticipated discharge home tomorrow DVT prophylaxis on heparin drip for PE
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
--- NOTE | 2021-04-06 11:44 | US ---
EXAMINATION TYPE: US venous doppler duplex LE DATE OF EXAM: 04/06/2021 11:34 AM COMPARISON: NONE CLINICAL HISTORY: pulmonary embolism. Swelling SIDE PERFORMED: bilateral TECHNIQUE: The lower extremity deep venous system is examined utilizing real time linear array sonog frederic with graded compression, doppler sonography and color-flow sonography. VESSELS IMAGED: Common Femoral Vein Deep Femoral Vein Greater Saphenous Vein * Femoral Vein Popliteal Vein Small Saphenous Vein * Proximal Calf Veins (* superficial vessels) Right Leg: no evidence of DVT Left Leg: *positive for DVT left lower femoral vein extending into popliteal vein Grayscale, color doppler, spectral doppler imaging performed of the deep veins of the bilateral lower extremities. IMPRESSION: Acute DVT in the left lower extremity is confirmed beginning mid to distal superficial fe moral vein level extending below the knee.
[2021-04-06 11:46] LABS: Glucose,Whole Blood 167 mg/dL (75-99)
[2021-04-06 16:58] LABS: Glucose,Whole Blood 116 mg/dL (75-99)
[2021-04-06] MEDS: APIXABAN 5 MG TAB PO SCH ×2 (18:05→20:35)
[2021-04-06 20:34] LABS: Glucose,Whole Blood 184 mg/dL (75-99)
[2021-04-06] MEDS: AZITHROMYCIN 500 MG in SODIUM CHLORIDE 0.9% 250 ML IVPB SCH (21:33)
[2021-04-07 06:53] LABS: Glucose,Whole Blood 148 mg/dL (75-99)
[2021-04-07] MEDS: SODIUM CHLORIDE 0.9% 1,000 ML IV SCH (06:54)
[2021-04-07] MEDS: INSULIN ASPART (NovoLOG) 100 UNIT/ML VIAL SQ SCH ×4 (07:11→20:20)
[2021-04-07] MEDS: hydrOXYzine HCL 25 MG TAB PO SCH ×2 (09:53→20:19)
[2021-04-07] MEDS: hydroCHLOROthiazide 25 MG TAB PO SCH (09:53)
[2021-04-07] MEDS: buPROPion XL 150 MG TAB.ER.24H PO SCH (09:53)
[2021-04-07] MEDS: PARoxetine 20 MG TAB PO SCH (09:53)
[2021-04-07] MEDS: lisinopriL 20 MG TAB PO SCH (09:53)
[2021-04-07] MEDS: APIXABAN 5 MG TAB PO SCH ×2 (09:54→20:19)
[2021-04-07] MEDS: ATORVASTATIN 20 MG TAB PO SCH (09:54)
[2021-04-07 11:01] LABS: Magnesium 2.1 mg/dL (1.6-2.3); Potassium 3.7 mmol/L (3.5-5.1)
[2021-04-07 12:28] LABS: Glucose,Whole Blood 133 mg/dL (75-99)
--- NOTE | 2021-04-07 12:45 | P.PN ---
Subjective Progress Note Date: 04/07/21 Principal diagnosis: Sob Currently feeling ok. Last fever was 100 last night. He started to require O2 per NC as well. He is on 3L currently. Objective - Vital Signs Vital signs: Vital Signs Temp 99 F 04/07/21 04:38 Pulse 87 04/07/21 04:38 Resp 18 04/07/21 04:38 BP 122/71 04/07/21 04:38 Pulse Ox 95 04/07/21 04:38 Intake & Output 04/06/21 04/07/21 04/07/21 18:59 06:59 18:59 Intake Total 413.269 180 Output Total 1000 350 Balance -586.731 -350 180 Intake: Intake, IV Titration 233.269 Amount Heparin Sod,Pork in 0.45% 233.269 NaCl 25,000 unit In 0.45 % NaCl 1 250ml.bag @ 17.5 UNITS/KG/HR 23.02 mls/hr IV .[id number] [facility] Rx#: [id number] Oral 180 180 Output: Urine 1000 350 Other: Voiding Method Toilet Toilet # Voids 1 - Exam Constitutional: No acute distress, conversant, pleasant Eyes:Anicteric sclerae, moist conjunctiva, no lid-lag, PERRLA, ENMT: Oropharynx clear, no erythema, exudates Neck: Supple, FROM, no masses, or JVD, No carotid bruits, No thyromegaly Lungs: Clear to auscultation, Clear to percussion, Normal respiratory effort, no accessory muscle use Cardiovascular: Heart regular in rate and rhythm, No murmurs, gallops, or rubs, No peripheral edema Abdominal: Soft, Nontender, no guarding, rebound or rigidity, Normoactive bowel sounds, No hepatomegaly, No splenomegaly, No palpable mass Skin: Normal temperature, tone, texture, turgor, no induration, No subcutaneous nodules, No rash, lesions, No ulcers Extremities: No digital cyanosis, No clubbing, Pedal pulses intact and symmetrical, Radial pulses intact and symmetrical, No calf tenderness Psychiatric: Alert and oriented to person, place and time, appropriate affect, intact judgement Neuro: Muscles Strength 5/5 in all 4 extremities, Sensation to light touch elbert ssly present throughout, Cranial nerves II-XII grossly intact, no focal sensory deficits - Labs CBC & Chem 7: 04/06/21 05:44 04/07/21 10:21 Labs: Abnormal Lab Results - Last 24 Hours (Table) 04/06/21 04/06/21 04/07/21 Range/Units 16:57 20:27 06:37 POC Glucose (mg/dL) 116 H 184 H 148 H (75-99) mg/dL 04/07/21 Range/Units 12:27 POC Glucose (mg/dL) 133 H (75-99) mg/dL Assessment and Plan Plan: Acute PE provoked by recent surgery Was on heparin drip, started on eliquis. IV fluid hydration normal saline Monitor vital signs Cardiac monitoring CT angiogram the chest showed right pulmonary infarct with right PE no evidence of RV strain Echo with low normal EF. Doppler showing right leg DVT. Fever/sepsis Sec to community aquired pneumonia Tylenol prn Resume abx Follow up blood cx. Chronic conditions Diabetes mellitus, insulin sliding scale Hypertension resume the pressure meds Anticipated discharge home tomorrow DVT prophylaxis on eliquis for PE
[2021-04-07 16:51] LABS: Glucose,Whole Blood 154 mg/dL (75-99)
[2021-04-07] MEDS ORDERED: DILTIAZEM DRIP BOLUS FROM BAG 1 MG SOLN IV ONE (17:52)
[2021-04-07] MEDS: DILTIAZEM 125 MG in SODIUM CHLORIDE 0.9% 100 ML IV SCH (18:40)
[2021-04-07] MEDS: AZITHROMYCIN 500 MG in SODIUM CHLORIDE 0.9% 250 ML IVPB SCH (20:19)
[2021-04-07] MEDS: MORPHINE SULFATE 4 MG/ML SYRINGE IV PRN (20:20)
[2021-04-07 20:35] LABS: Glucose,Whole Blood 129 mg/dL (75-99)
[2021-04-08] MEDS: DILTIAZEM 125 MG in SODIUM CHLORIDE 0.9% 100 ML IV SCH ×2 (02:35→18:16)
[2021-04-08] MEDS: MORPHINE SULFATE 4 MG/ML SYRINGE IV PRN ×2 (03:35→20:48)
[2021-04-08 05:59] LABS: Glucose,Whole Blood 130 mg/dL (75-99)
[2021-04-08] MEDS: INSULIN ASPART (NovoLOG) 100 UNIT/ML VIAL SQ SCH ×4 (06:26→20:45)
[2021-04-08] MEDS ORDERED: METOPROLOL TARTRATE 25 MG TAB PO SCH (08:00)
[2021-04-08 08:15] LABS: Basophils # (A) 0.1 k/uL (0-0.2); Basophils % (A) 1 %; Eosinophils # (A) 0.1 k/uL (0-0.7); Eosinophils % (A) 2 %; HCT 38.6 % (39.0-53.0); HGB 12.3 gm/dL (13.0-17.5); Hypochromasia Slight; Lymphocytes # (A) 1.9 k/uL (1.0-4.8); Lymphocytes % (A) 38 %; MCH 31.2 pg (25.0-35.0); MCV 97.5 fL (80.0-100.0); Mean Platelet Volume 7.4; Monocytes # (A) 0.5 k/uL (0-1.0); Monocytes % (A) 10 %; Neutrophils # (A) 2.5 k/uL (1.3-7.7); Neutrophils % (A) 48 %; Platelet Count 373 k/uL (150-450); RBC 3.95 m/uL (4.30-5.90); RDW 13.9 % (11.5-15.5); WBC 5.1 k/uL (3.8-10.6)
[2021-04-08 08:27] LABS: African American GFR (CKD) >90 (>60 ml/min/1.73 sqM); Anion Gap 7 mmol/L; Blood Urea Nitrogen 12 mg/dL (9-20); Carbon Dioxide 27 mmol/L (22-30); Chloride 102 mmol/L (98-107); Glucose 150 mg/dL (74-99); Magnesium 2.1 mg/dL (1.6-2.3); Non-African American GFR(CKD) 85 (>60 ml/min/1.73 sqM); Phosphorus 4.4 mg/dL (2.5-4.5); Potassium 3.8 mmol/L (3.5-5.1); Sodium 136 mmol/L (137-145)
[2021-04-08] MEDS: ATORVASTATIN 20 MG TAB PO SCH (08:34)
[2021-04-08] MEDS: hydrOXYzine HCL 25 MG TAB PO SCH ×2 (08:34→22:10)
[2021-04-08] MEDS: buPROPion XL 150 MG TAB.ER.24H PO SCH (08:34)
[2021-04-08] MEDS: APIXABAN 5 MG TAB PO SCH ×2 (08:35→20:44)
[2021-04-08] MEDS: PARoxetine 20 MG TAB PO SCH (08:35)
[2021-04-08] MEDS ORDERED: METOPROLOL TARTRATE 25 MG TAB PO STA (08:54)
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
--- NOTE | 2021-04-08 11:16 | P.CRDCN ---
History of Present Illness History of present illness: HISTORY OF PRESENTING ILLNESS This is a pleasant 61-year-old male past medical history significant for hypertension, diabetes, former nicotine dependence, objective sleep apnea, recent left total knee arthroplasty on 03/19/2021. 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 We have been asked to see in consultation for new onset atrial fibrillation with rapid ventricular response. Patient presents emergency department with complaints of shortness of breath, worsening back pain, right shoulder pain, chest discomfort when taking a deep breath. He was taking Eliquis after his knee surgery for about 2 weeks, he stopped the medication 3 days ago. He denies history of CAD, [place], Stroke or atrial fibrillation in the past. Family history includes his mother had History of DVTs. -CT chest revealed large emboli in the right lower lobe pulmonary artery branches, extending into the origin of the right lower lobe pulmonary artery. Infiltrates in the right lower lobe with pleural thickening consistent with pulmonary infarct. No evidence of right heart strain. Normal heart. -Ultrasound of the lower extremity revealed acute DVT in the left lower extremity Patient seen and examined at bedside, no acute distress. He states his shortness of breath and chest discomfort has improved. Telemetry reviewed patient in atrial fibrillation with heart rate [id number], he appears to be in and out of atrial fibrillation overnight. Echocardiogram revealed an EF of 5055 percent, no significant wall motion abnormalities. No right heart strain. DIAGNOSTICS EKG on admission reveals sinus mechanism, heart rate 91, T wave inversions in inferior and lateral leads, PVC. No prior EKG to compare. Repeat EKG yesterday revealed atrial fibrillation with rapid ventricular response, heart rate 144 Telemetry tracings indicate atrial fibrillation HR 90s-120 Laboratory reviewed, WBC 5.1, hemoglobin 12.3, platelets 373, sodium 136, potassium 3.8, BUN 12, serum creatinine 0.9, magnesium 2.1, TSH within normal limits Current home medications include Wellbutrin, metformin, atorvastatin 20 mg daily, lisinopril 20 mg daily, hydrochlorothiazide 25 mg daily, hydroxyzine 25 mg twice a day REVIEW OF SYSTEMS At the time of my exam: CONSTITUTIONAL: Denies fever or chills. CARDIOVASCULAR: Denies chest pain, shortness of breath, orthopnea, PND or palpitations. RESPIRATORY: Denies cough. GASTROINTESTINAL: Denies abdominal pain, diarrhea, constipation, nausea or vomiting. MUSCULOSKELETAL: Denies myalgias. NEUROLOGIC: Denies numbness, tingling, headacbe or weakness. ENDOCRINE: Denies fatigue, weight change, polydipsia or polyurina. GENITOURINARY: Denies burning, hematuria or urgency with micturation. HEMATOLOGIC: Denies history of anemia or bleeding. PHYSICAL EXAMINATION Vitals Reviewed CONSTITUTIONAL: No apparent distress. HEENT: Head is normocephalic. Pupils are equal, round. Sclerae anicteric. Mucous membranes of the mouth are moist. No JVD. No carotid bruit. CHEST EXAMINATION: Lungs are clear to auscultation. No chest wall tenderness is noted on palpation or with deep breathing. HEART EXAMINATION: Irregular rate and rhythm. S1, S2 heard. No murmurs, gallops or rub. ABDOMEN: Soft, nontender. Positive bowel sounds. EXTREMITIES: 2+ peripheral pulses, no lower extremity edema and no calf tenderness. SKIN: warm, dry NEUROLOGIC EXAMINATION: Patient is awake, alert and oriented x3. ASSESSMENT Paroxysmal atrial fibrillation with rapid ventricular response [id number] score 2 Acute Pulmonary Embolism Acute deep vein thrombosis left lower extremity Recent left total knee arthroplasty on 03/19/2021 Family history of DVTs History of hypertension Type 2 diabetes Objective sleep apnea Former nicotine dependence PLAN -Discontinue hydrochlorothiazide -Increase metoprolol tartrate to 50mg BID -Wean off Cardizem Drip -Patient is on Eliquis 10mg BID, continue anticoagulation patient will need assisted anticoagulation -Continue Lisinopril -Obtain Lipid panel and hemoglobin A1C -Further recommendations based on clinical course -Patient to follow up outpatient with Dr. Hernandez, once medically stable for discharge. Nurse Practitioner note has been reviewed, I agree with a documented findings and plan of care. Patient was seen and examined. Past Medical History Past Medical History: Diabetes Mellitus, Hyperlipidemia, Hypertension, Osteoarthritis (OA), Sleep Apnea/CPAP/BIPAP Additional Past Medical History / Comment(s): no cpap used, left knee pain History of Any Multi-Drug Resistant Organisms: None Reported Past Surgical History: Heart Catheterization, Orthopedic Surgery Additional Past Surgical History / Comment(s): juno knee arthroscopies, multiple left hand surgeries after injury Past Anesthesia/Blood Transfusion Reactions: Motion Sickness, Postoperative Nausea & Vomiting (PONV) Additional Past Anesthesia/Blood Transfusion Reaction / Comment(s): motion sickness when younger Past Psychological History: Anxiety, Depression Smoking Status: Former smoker Past Alcohol Use History: Occasional Additional Past Alcohol Use History / Comment(s): quit smoking 20 yrs ago, smoked for < 1 yr Past Drug Use History: None Reported - Past Family History Mother Family Medical History: No Reported History Medications and Allergies Home Medications Medication Instructions Recorded Confirmed Type Atorvastatin [Lipitor] 20 mg PO DAILY 11/15/19 04/05/21 History PARoxetine HCL [Paxil] 40 mg PO DAILY 11/15/19 04/05/21 History buPROPion HCL [Wellbutrin XL] 150 mg PO DAILY 11/15/19 04/05/21 History hydroCHLOROthiazide [Hydrodiuril] 25 mg PO DAILY 11/15/19 04/05/21 History lisinopriL [Zestril] 20 mg PO DAILY 11/15/19 04/05/21 History hydrOXYzine HCL 25 mg PO BID 03/18/21 04/05/21 History traMADol HCl [Ultram] 50 mg PO Q6H PRN #24 tab 03/20/21 04/05/21 Rx HYDROcodone/APAP 7.5-325MG [[place] 1 - 2 tab PO Q6HR PRN 04/05/21 04/05/21 History 7.5] metFORMIN HCL [Glucophage] 500 mg PO DAILY 04/05/21 04/05/21 History Allergies Allergy/AdvReac Type Severity Reaction Status Date / Time No Known Allergies Allergy Verified 04/05/21 21:55 Physical Exam Vitals: Vital Signs Temp Pulse Resp BP Pulse Ox 04/08/21 04:00 98.8 F 122 H 18 128/69 96 04/07/21 23:17 99.7 F H 118 H 17 115/68 98 04/07/21 20:00 99.8 F H 120 H 18 120/61 94 L 04/07/21 15:44 98.9 F 90 20 142/67 94 L 04/07/21 14:00 78 20 04/07/21 12:00 99.1 F 78 20 137/62 95 04/07/21 08:00 99.0 F 86 20 104/61 95 Intake and Output 04/07/21 04/08/21 04/08/21 22:59 06:59 14:59 Intake Total 79.167 Balance 79.167 Intake: Intake, IV Titration 79.167 Amount Diltiazem 125 mg In 79.167 Sodium Chloride 0.9% 100 ml @ 10 MG/HR 10 mls/hr IV .[id number] [facility] Rx#: [id number] Other: Voiding Method Toilet # Voids 0 Results 04/08/21 07:52 04/08/21 07:52 Comprehensive Metabolic Panel 04/07/21 Range/Units 10:21 Potassium 3.7 (3.5-5.1) mmol/L Current Medications Generic Name Dose Route Start Last Admin Trade Name Freq PRN Reason Stop Dose Admin Acetaminophen 650 mg 04/05/21 22:32 Acetaminophen Tab 325 Mg Tab PO Q6HR PRN Mild Pain or Fever > 100.5 Apixaban 10 mg 04/06/21 16:00 04/07/21 20:19 Apixaban 5 Mg Tab PO 04/12/21 15:57 10 mg BID SIDDHARTHA Administration Protocol Atorvastatin Calcium 20 mg 04/06/21 09:00 04/07/21 09:54 Atorvastatin 20 Mg Tab PO 20 mg DAILY SIDDHARTHA Administration Bupropion HCl 150 mg 04/06/21 09:00 04/07/21 09:53 Bupropion Xl 150 Mg Tab.Er.24h PO 150 mg DAILY SIDDHARTHA Administration Hydrochlorothiazide 25 mg 04/06/21 09:00 04/07/21 09:53 Hydrochlorothiazide 25 Mg Tab PO 25 mg DAILY SIDDHARTHA Administration Hydroxyzine HCl 25 mg 04/06/21 09:00 04/07/21 20:19 Hydroxyzine Hcl 25 Mg Tab PO 25 mg BID SIDDHARTHA Administration Ceftriaxone Sodium 1 gm/ 50 mls @ 100 mls/hr 04/06/21 10:00 04/07/21 22:11 Sodium Chloride IVPB 100 mls/hr Q12H SIDDHARTHA Administration Azithromycin 500 mg/ Sodium 250 mls @ 250 mls/hr 04/06/21 21:00 04/07/21 20:19 Chloride IVPB 250 mls/hr DAILY@2100 SIDDHARTHA Administration Diltiazem HCl 125 mg/ Sodium 125 mls @ 10 mls/hr 04/07/21 18:00 04/08/21 02:35 Chloride IV 10 mg/hr .[id number] SIDDHARTHA 10 mls/hr Administration 10 MG/HR Ibuprofen 400 mg 04/05/21 22:32 Ibuprofen 400 Mg Tab PO Q6HR PRN Mild Pain or Fever > 100.5 Insulin Aspart 0 unit 04/06/21 07:30 04/08/21 06:26 Insulin Aspart (Novolog) 100 Unit/Ml Vial SQ Not Given ACHS [facility] Protocol Lisinopril 20 mg 04/06/21 09:00 04/07/21 09:53 Lisinopril 20 Mg Tab PO Not Given DAILY [facility] Morphine Sulfate 4 mg 04/05/21 22:32 04/08/21 03:35 Morphine Sulfate 4 Mg/Ml Syringe IV 4 mg Q4HR PRN Administration Severe Pain Naloxone HCl 0.2 mg 04/05/21 22:32 Naloxone 0.4 Mg/Ml 1 Ml Vial IV Q2M PRN Opioid Reversal Ondansetron HCl 4 mg 04/05/21 22:32 Ondansetron 4 Mg/2 Ml Vial IVP Q8HR PRN Nausea And Vomiting Paroxetine HCl 40 mg 04/06/21 09:00 04/07/21 09:53 Paroxetine 20 Mg Tab PO 40 mg DAILY [facility] Administration Intake and Output 04/07/21 04/08/21 04/08/21 22:59 06:59 14:59 Intake Total 79.167 Balance 79.167 Intake: Intake, IV Titration 79.167 Amount Diltiazem 125 mg In 79.167 Sodium Chloride 0.9% 100 ml @ 10 MG/HR 10 mls/hr IV .[id number] [facility] Rx#: [id number] Other: Voiding Method Toilet # Voids 0 04/06/21 05:44 04/07/21 10:21
[2021-04-08 11:21] LABS: Glucose,Whole Blood 154 mg/dL (75-99)
[2021-04-08] MEDS: lisinopriL 20 MG TAB PO SCH (12:08)
--- NOTE | 2021-04-08 13:09 | P.PN ---
Subjective Progress Note Date: 04/08/21 This is 61-year-old male who had presented to the emergency room complaints of shortness of breath and pleuritic chest pain. Was diagnosed with pulmonary embolism on the right. He is been started on Eliquis. He states he is feeling better. He does still have some dyspnea on exertion. He is running anywhere between 95-98% on 3 L of nasal cannula. He did have a lower extremity venous duplex that showed an acute DVT in the left lower extremity beginning mid to distal superficial femoral vein level extending below the knee. Patient denies any pain in his bilateral lower extremities. Objective - Vital Signs Vital signs: Vital Signs Temp 98.8 F 04/08/21 04:00 Pulse 122 H 04/08/21 04:00 Resp 18 04/08/21 04:00 BP 128/69 04/08/21 04:00 Pulse Ox 96 04/08/21 04:00 Intake & Output 04/07/21 04/08/21 04/08/21 18:59 06:59 18:59 Intake Total 360 79.167 240 Balance 360 79.167 240 Intake: Intake, IV Titration 79.167 Amount Diltiazem 125 mg In 79.167 Sodium Chloride 0.9% 100 ml @ 10 MG/HR 10 mls/hr IV .[id number] [facility] Rx#: [id number] Oral 360 240 Other: Voiding Method Toilet Toilet # Voids 3 0 - Exam General appearance: The patient is alert, oriented, appears in no acute distress. HET: Head is normocephalic and atraumatic. Neck: Supple without lymphadenopathy. Trachea midline. Heart: S1 S2. Regular rate and rhythm. Lungs: Equal entry. Clear to auscultation. No crackles or wheezes are heard. Extremities: Normal skin color and turgor. No cyanosis, rash, ulceration, clubbing, or edema. Radial and pedal pulses are 2/4 bilaterally. Neurological: No focal deficits. Alert and oriented 3. - Labs CBC & Chem 7: 04/08/21 07:52 04/08/21 07:52 Labs: Abnormal Lab Results - Last 24 Hours (Table) 04/07/21 04/07/21 04/07/21 Range/Units 12:27 16:49 19:58 RBC (4.30-5.90) m/uL Hgb (13.0-17.5) gm/dL Hct (39.0-53.0) % Sodium (137-145) mmol/L Glucose (74-99) mg/dL POC Glucose (mg/dL) 133 H 154 H 129 H (75-99) mg/dL 04/08/21 04/08/21 04/08/21 Range/Units 05:29 07:52 07:52 RBC 3.95 L (4.30-5.90) m/uL Hgb 12.3 L (13.0-17.5) gm/dL Hct 38.6 L (39.0-53.0) % Sodium 136 L (137-145) mmol/L Glucose 150 H (74-99) mg/dL POC Glucose (mg/dL) 130 H (75-99) mg/dL Assessment and Plan Assessment: 1. Right sided pulmonary embolism without evidence of heart strain 2. Acute DVT to left lower extremity 3. Status post left knee arthroplasty performed approximately 2 weeks ago Plan: 1. Continue with Jose 2. COLT hose to bilateral lower extremities 3. Follow-up with Dr. Lewis in 2-3 weeks Thank you for this consultation, vascular surgery will sign off at this time. The impression and plan of care has been dictated as directed. Dr. Redd I performed a history and examination of this patient, discussed the same with the dictator. I agree with the dictator's note ,documented as a scribe. Any additional findings or plans will be noted.
[2021-04-08] MEDS: METOPROLOL TARTRATE 50 MG TAB PO SCH (15:45)
[2021-04-08 16:15] LABS: Glucose,Whole Blood 160 mg/dL (75-99)
[2021-04-08 20:35] LABS: Glucose,Whole Blood 165 mg/dL (75-99)
[2021-04-08] MEDS: AZITHROMYCIN 500 MG in SODIUM CHLORIDE 0.9% 250 ML IVPB SCH (20:44)
[2021-04-08 21:34] LABS: Chol/HDL Ratio 4.54 Ratio; LDL Cholesterol,Calculated 68.9 mg/dL (0.0-131.0)
[2021-04-09] MEDS: METOPROLOL TARTRATE 50 MG TAB PO SCH ×2 (04:47→18:20)
[2021-04-09 06:36] LABS: Glucose,Whole Blood 134 mg/dL (75-99)
[2021-04-09] MEDS: DILTIAZEM 125 MG in SODIUM CHLORIDE 0.9% 100 ML IV SCH (06:44)
[2021-04-09] MEDS: INSULIN ASPART (NovoLOG) 100 UNIT/ML VIAL SQ SCH ×4 (06:45→21:34)
[2021-04-09] MEDS: APIXABAN 5 MG TAB PO SCH ×2 (08:59→21:33)
[2021-04-09] MEDS: lisinopriL 20 MG TAB PO SCH (08:59)
[2021-04-09] MEDS: PARoxetine 20 MG TAB PO SCH (08:59)
[2021-04-09] MEDS: buPROPion XL 150 MG TAB.ER.24H PO SCH (08:59)
[2021-04-09] MEDS: hydrOXYzine HCL 25 MG TAB PO SCH ×2 (08:59→21:33)
[2021-04-09] MEDS: ATORVASTATIN 20 MG TAB PO SCH (09:00)
--- NOTE | 2021-04-09 11:19 | P.PN ---
<Boris Connolly - Last Filed: 04/09/21 15:02> Subjective Progress Note Date: 04/09/21 Hospital course: Patient is a 61-year-old male with a past medical history of hypertension, hyperlipidemia, RYAN CPAP dependent, diabetes mellitus, and recent right total knee arthroplasty completed on 03/19/[address] Cruz. He presented to the emergency department on 04/05/21 with a chief complaint of fever, shortness of breath, cough, and right shoulder pain which was worsened upon taking a deep breath. Patient was seen and fully evaluated in the emergency department. He underwent a chest x-ray revealing mild subsegmental atelectasis with interstitial density concerning for pneumonia. CTA was completed revealing large emboli in the right lower lobe pulmonary artery branches extending into the origin of the right lower lobe pulmonary artery with infiltrates in the right lower lobe with pleural thickening consistent with pulmonary infarct. Echocardiogram revealed a normal EF between 50 and 55% with mildly enlarged right ventricle and moderate left ventricular hypertrophy, no reported evidence of heart strain. Bilateral lower extremity Dopplers positive for DVT in the left femoral vein extending into the popliteal vein. She was started on heparin infusion and admitted under our services with consultation to vascular surgery and cardiology. Physical exam: Vital signs reviewed and stable. Patient seen and fully evaluated at bedside this morning. Patient sitting up in chair denies having any complaints or concerns at this time. Patient denies headache, lightheadedness, dizziness, chest pain, palpitations, or shortness of breath. Patient denies having any numbness/tingling/weakness in his extremities. General: Nontoxic, no distress and appears stated age. Derm: Skin warm and dry, normal coloration for ethnicity. Head: Atraumatic, normocephalic and symmetric. Eyes: EOMs intact, no lid lag, and anicteric sclera Mouth: no lip lesions, mucus membranes moist Cardiovascular: regular rate and rhythm with normal S1S2, no murmur, positive posterior tibial pulses bilaterally, and cap refill < 2 seconds. Lungs: Respirations even, regular, and unlabored on room air. Lungs CTA juno aterally, no rhonchi, no rales, no wheezing, and no accessory muscle usage. Abdominal: soft, nontender to palpation, no guarding, no appreciable organomegaly Ext: ROM intact. No gross muscle atrophy, no edema, no contractures Neuro: Speech clear, face symmetrical and CN II-XII grossly intact with no noted focal neuro deficits Psych: Alert and oriented to person, place, time, and situation. Appropriate and pleasant affect. Assessment and Plan of Care: Acute pulmonary emboli of right lower lobe pulmonary artery branches with pulmonary infarct, without evidence of heart strain Acute DVT of left femoral vein extending into popliteal vein -Patient was placed on anticoagulation with heparin and transitioned to oral anticoagulant with Eliquis. -Cardiology following -Vascular surgery following -Continue telemetry monitoring -Script sent to pharmacy for pricing of oral anticoagulation, plans for likely discharge tomorrow morning. New-onset atrial fibrillation with RVR -Continue metoprolol 50 mg every 12 hours. -Continue anticoagulation with Eliquis. -Continue telemetry monitoring Status post right total knee arthroplasty completed on 03/19/21 -Physical therapy consulted. Hypertension -Monitor vital signs and continue daily medication regimen with lisinopril. Hyperlipidemia Continue daily medication regimen with atorvastatin. CODE STATUS: Full code DVT prophylaxis: Eliquis Discussed with: Patient and RN Anticipated discharge date: Clinical course to determine Anticipated discharge place: Home A total of 40 minutes was spent on the care of this complex patient more than 50% of the time was spent in counseling and care coordination. Objective - Vital Signs Vital signs: Vital Signs Temp 98.4 F 04/09/21 04:45 Pulse 64 04/09/21 04:45 Resp 20 04/09/21 04:45 BP 104/66 04/09/21 04:45 Pulse Ox 95 04/09/21 04:45 Intake & Output 04/08/21 04/09/21 04/09/21 18:59 06:59 18:59 Intake Total 605 480 Output Total 600 Balance 5 480 Intake: Intake, IV Titration 125 Amount Diltiazem 125 mg In 125 Sodium Chloride 0.9% 100 ml @ 10 MG/HR 10 mls/hr IV .[id number] [facility] Rx#: [id number] Oral 480 480 Output: Urine 600 Other: Voiding Method Toilet Toilet # Voids 1 1 # Bowel Movements 1 - Labs CBC & Chem 7: 04/08/21 07:52 04/08/21 07:52 Labs: Abnormal Lab Results - Last 24 Hours (Table) 04/08/21 04/08/21 04/08/21 Range/Units 07:52 11:20 16:12 POC Glucose (mg/dL) 154 H 160 H (75-99) mg/dL Triglycerides 178.00 H (0.00-149.00) mg/dL HDL Cholesterol 29.50 L (40.00-60.00) mg/dL 04/08/21 04/09/21 Range/Units 20:34 06:34 POC Glucose (mg/dL) 165 H 134 H (75-99) mg/dL Triglycerides (0.00-149.00) mg/dL HDL Cholesterol (40.00-60.00) mg/dL <Selvin Gutierrez - Last Filed: 04/10/21 08:00> Subjective I reviewed the documentation as provided by the KAUSHIK above, who is the original author of this note. I agree with the documented assessment and plan, with the following changes: none Objective - Vital Signs Vital signs: Vital Signs Temp 97.8 F 04/10/21 03:58 Pulse 60 04/10/21 03:58 Resp 18 04/10/21 03:58 BP 105/67 04/10/21 03:58 Pulse Ox 97 04/10/21 03:58 Intake & Output 04/09/21 04/10/21 04/10/21 18:59 06:59 18:59 Intake Total 598 Balance 598 Intake: Oral 598 Other: Voiding Method Toilet Toilet # Voids 2 1 # Bowel Movements 1 - Labs CBC & Chem 7: 04/08/21 07:52 04/08/21 07:52 Labs: Abnormal Lab Results - Last 24 Hours (Table) 04/09/21 04/09/21 04/09/21 Range/Units 11:49 16:24 20:19 POC Glucose (mg/dL) 132 H 185 H 135 H (75-99) mg/dL 04/10/21 Range/Units 05:53 POC Glucose (mg/dL) 132 H (75-99) mg/dL Microbiology - Last 24 Hours (Table) 04/08/21 11:20 Blood Culture - Preliminary Blood No Growth after 24 hours
[2021-04-09 11:51] LABS: Glucose,Whole Blood 132 mg/dL (75-99)
--- NOTE | 2021-04-09 13:16 | P.PN ---
Subjective This is a pleasant 61-year-old male past medical history significant for hypertension, diabetes, former nicotine dependence, objective sleep apnea, r ecent left total knee arthroplasty on 03/19/2021. 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 We have been asked to see in consultation for new onset atrial fibrillation with rapid ventricular response. Patient presents emergency department with complaints of shortness of breath, worsening back pain, right shoulder pain, chest discomfort when taking a deep breath. He was taking Eliquis after his knee surgery for about 2 weeks, he stopped the medication 3 days ago. He denies history of CAD, [place], Stroke or atrial fibrillation in the past. Family history includes his mother had History of DVTs. -CT chest revealed large emboli in the right lower lobe pulmonary artery branches, extending into the origin of the right lower lobe pulmonary artery. Infiltrates in the right lower lobe with pleural thickening consistent with pulmonary infarct. No evidence of right heart strain. Normal heart. -Ultrasound of the lower extremity revealed acute DVT in the left lower extremity 04/09/2021 Patient seen and examined at bedside, no acute distress. He denies any chest pain or pressure support. Telemetry reviewed patient in sinus mechanism this morning, heart rate in the 70s. He did have an episode of atrial fibrillation overnight. Echocardiogram revealed an EF of 5055 percent, no significant wall motion abnormalities. No right heart strain. His IV Cardizem drip is discontinued. He's currently maintained on Eliquis 10 mg twice a day, atorvastatin 20 mg daily, lisinopril 20 mg daily, metoprolol titrate 50 mg daily. PHYSICAL EXAMINATION Vitals Reviewed CONSTITUTIONAL: No apparent distress. HEENT: Neck Supple. No JVD. CHEST EXAMINATION: Lungs are clear to auscultation. No chest wall tenderness is noted on palpation or with deep breathing. HEART EXAMINATION: Irregular rate and rhythm. S1, S2 heard. No murmurs, gallops or rub. ABDOMEN: Soft, nontender. Positive bowel sounds. EXTREMITIES: 2+ peripheral pulses, no lower extremity edema and no calf tend erness. SKIN: warm, dry NEUROLOGIC EXAMINATION: Patient is awake, alert and oriented x3. 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 -Patient to follow up outpatient with Dr. Hernandez in 3-4 weeks. Nurse Practitioner note has been reviewed, I agree with a documented findings and plan of care. Patient was seen and examined. Objective - Vital Signs Vital signs: Vital Signs Temp 98.4 F 04/09/21 04:45 Pulse 64 04/09/21 04:45 Resp 20 04/09/21 04:45 BP 104/66 04/09/21 04:45 Pulse Ox 95 04/09/21 04:45 Intake & Output 04/08/21 04/09/21 04/09/21 18:59 06:59 18:59 Intake Total 605 480 Output Total 600 Balance 5 480 Intake: Intake, IV Titration 125 Amount Diltiazem 125 mg In 125 Sodium Chloride 0.9% 100 ml @ 10 MG/HR 10 mls/hr IV .[id number] [facility] Rx#: [id number] Oral 480 480 Output: Urine 600 Other: Voiding Method Toilet Toilet # Voids 1 1 # Bowel Movements 1 - Labs CBC & Chem 7: 04/08/21 07:52 04/08/21 07:52 Labs: Abnormal Lab Results - Last 24 Hours (Table) 04/08/21 04/08/21 04/08/21 Range/Units 07:52 16:12 20:34 POC Glucose (mg/dL) 160 H 165 H (75-99) mg/dL Triglycerides 178.00 H (0.00-149.00) mg/dL HDL Cholesterol 29.50 L (40.00-60.00) mg/dL 04/09/21 04/09/21 Range/Units 06:34 11:49 POC Glucose (mg/dL) 134 H 132 H (75-99) mg/dL Triglycerides (0.00-149.00) mg/dL HDL Cholesterol (40.00-60.00) mg/dL
[2021-04-09 16:25] LABS: Glucose,Whole Blood 185 mg/dL (75-99)
[2021-04-09 20:20] LABS: Glucose,Whole Blood 135 mg/dL (75-99)
[2021-04-09] MEDS ORDERED: MELATONIN 5 MG TABLET PO SCH (21:00)
[2021-04-09] MEDS ORDERED: AZITHROMYCIN 500 MG TAB PO SCH (21:00)
[2021-04-10] MEDS: METOPROLOL TARTRATE 50 MG TAB PO SCH (04:01)
[2021-04-10 05:54] LABS: Glucose,Whole Blood 132 mg/dL (75-99)
[2021-04-10] MEDS: INSULIN ASPART (NovoLOG) 100 UNIT/ML VIAL SQ SCH (06:23)
[2021-04-10 09:00] LABS: Basophils # (A) 0.1 k/uL (0-0.2); Basophils % (A) 2 %; Eosinophils # (A) 0.1 k/uL (0-0.7); Eosinophils % (A) 3 %; HCT 34.4 % (39.0-53.0); HGB 11.3 gm/dL (13.0-17.5); Hypochromasia Slight; Lymphocytes # (A) 1.7 k/uL (1.0-4.8); Lymphocytes % (A) 38 %; MCH 31.3 pg (25.0-35.0); MCHC 32.9 g/dL (31.0-37.0); MCV 94.9 fL (80.0-100.0); Mean Platelet Volume 7.4; Monocytes # (A) 0.4 k/uL (0-1.0); Monocytes % (A) 8 %; Neutrophils # (A) 2.1 k/uL (1.3-7.7); Neutrophils % (A) 48 %; Platelet Count 415 k/uL (150-450); RBC 3.62 m/uL (4.30-5.90); RDW 13.9 % (11.5-15.5); WBC 4.4 k/uL (3.8-10.6)
[2021-04-10] MEDS: lisinopriL 20 MG TAB PO SCH (09:41)
[2021-04-10] MEDS: ATORVASTATIN 20 MG TAB PO SCH (09:41)
[2021-04-10] MEDS: APIXABAN 5 MG TAB PO SCH (09:41)
[2021-04-10] MEDS: PARoxetine 20 MG TAB PO SCH (09:42)
[2021-04-10] MEDS: hydrOXYzine HCL 25 MG TAB PO SCH (09:46)
[2021-04-10] MEDS: buPROPion XL 150 MG TAB.ER.24H PO SCH (09:46)
--- NOTE | 2021-04-10 11:03 | P.DS ---
<Boris Connolly - Last Filed: 04/10/21 13:50> Providers Expected date of discharge: 04/10/21 Hospital Course: Discharge Diagnosis: Acute pulmonary emboli of right lower lobe pulmonary artery branches with pulmonary infarct, without evidence of heart strain Acute DVT of left femoral vein extending into popliteal vein New-onset atrial fibrillation with RVR, [id number] Score of 2 secondary to Status post right total knee arthroplasty completed on 03/19/21 Hypertension Hyperlipidemia Hospital Course: Patient is a 61-year-old male with a past medical history of hypertension, hyperlipidemia, RYAN CPAP dependent, diabetes mellitus, and recent right total knee arthroplasty completed on 03/19/[address] Cruz. He presented to the emergency department on 04/05/21 with a chief complaint of fever, shortness of breath, cough, and right shoulder pain which was worsened upon taking a deep breath. Patient was seen and fully evaluated in the emergency department. He underwent a chest x-ray revealing mild subsegmental atelectasis with interstitial density concerning for pneumonia. CTA was completed revealing large emboli in the right lower lobe pulmonary artery branches extending into the origin of the right lower lobe pulmonary artery with infiltrates in the right lower lobe with pleural thickening consistent with pulmonary infarct. Echocardiogram revealed a normal EF between 50 and 55% with mildly enlarged right ventricle and moderate left ventricular hypertrophy, no reported evidence of heart strain. Bilateral lower extremity Dopplers positive for DVT in the left femoral vein extending into the popliteal vein. He was started on heparin infusion and admitted under our services with consultation to vascular surgery and cardiology. Pt was transitioned to oral anticoagulation with Eliquis. Cardiology recommended patient will need long-term anticoagulation and recommending following up outpatient with Dr. Hernandez in 3 weeks. Patient is medically stable for discharge at this time. Patient instructed he will need to follow up with his PCP in 1-2 days, cardiology in 3 weeks, and orthopedic surgery as previously scheduled in 2 weeks. Physical exam: Vital signs reviewed and stable. Patient seen and fully evaluated at bedside this morning. Patient sitting up in chair and denies having any complaints or concerns at this time. Patient denies headache, lightheadedness, dizziness, chest pain, palpitations, or shortness of breath. Patient denies having any numbness/tingling/weakness in his extremities. General: Nontoxic, no distress and appears stated age. Derm: Skin warm and dry, normal coloration for ethnicity. Head: Atraumatic, normocephalic and symmetric. Eyes: EOMs intact, no lid lag, and anicteric sclera Mouth: no lip lesions, mucus membranes moist Cardiovascular: regular rate and rhythm with normal S1S2, no murmur, positive posterior tibial pulses bilaterally, and cap refill < 2 seconds. Lungs: Respirations even, regular, and unlabored on room air. Lungs CTA bilaterally, no rhonchi, no rales, no wheezing, and no accessory muscle usage. Abdominal: soft, nontender to palpation, no guarding, no appreciable organomegaly Ext: ROM intact. No gross muscle atrophy, no edema, no contractures Neuro: Speech clear, face symmetrical and CN II-XII grossly intact with no noted focal neuro deficits Psych: Alert and oriented to person, place, time, and situation. Appropriate and pleasant affect. A total of 45 minutes of time were spent preparing this complex discharge summary. Patient Condition at Discharge: Stable Plan - Discharge Summary Discharge Rx Participant: No New Discharge Prescriptions: New Apixaban [Eliquis Starter Pack (for VTE)] 5 - 10 mg PO DIRECTED 30 Days #1 each Metoprolol Tartrate [Lopressor] 50 mg PO Q12H 30 Days #60 tab Continue lisinopriL [Zestril] 20 mg PO DAILY buPROPion HCL [Wellbutrin XL] 150 mg PO DAILY Atorvastatin [Lipitor] 20 mg PO DAILY PARoxetine HCL [Paxil] 40 mg PO DAILY traMADol HCl [Ultram] 50 mg PO Q6H PRN #24 tab PRN Reason: Pain metFORMIN HCL [Glucophage] 500 mg PO DAILY hydrOXYzine HCL 25 mg PO BID HYDROcodone/APAP 7.5-325MG [[place] 7.5-325] 1 - 2 tab PO Q6HR PRN PRN Reason: Pain Discontinued hydroCHLOROthiazide [Hydrodiuril] 25 mg PO DAILY Discharge Medication List Atorvastatin [Lipitor] 20 mg PO DAILY 11/15/19 [History] PARoxetine HCL [Paxil] 40 mg PO DAILY 11/15/19 [History] buPROPion HCL [Wellbutrin XL] 150 mg PO DAILY 11/15/19 [History] lisinopriL [Zestril] 20 mg PO DAILY 11/15/19 [History] hydrOXYzine HCL 25 mg PO BID 03/18/21 [History] traMADol HCl [Ultram] 50 mg PO Q6H PRN #24 tab 03/20/21 [Rx] HYDROcodone/APAP 7.5-325MG [[place] 7.5-325] 1 - 2 tab PO Q6HR PRN 04/05/21 [History] metFORMIN HCL [Glucophage] 500 mg PO DAILY 04/05/21 [History] Apixaban [Eliquis Starter Pack (for VTE)] 5 - 10 mg PO DIRECTED 30 Days #1 each 04/09/21 [Rx] Metoprolol Tartrate [Lopressor] 50 mg PO Q12H 30 Days #60 tab 04/09/21 [Rx] Follow up Appointment(s)/Referral(s): Robb Hernandez MD [STAFF PHYSICIAN] - 3 Weeks (office will call you with appt. time) Nehemiah Dawson DO [Doctor of Osteopathic Medicine] - 2 Weeks Lourdes Hinkle MD [Primary Care Provider] - 1-2 days (April 12 1:45) Patient Instructions/Handouts: Pulmonary Embolism (DC) Activity/Diet/Wound Care/Special Instructions: Activity: As tolerated. Take breaks as needed. Diet: Heart healthy and carb consistent diet. Avoid salts, or foods with hidden salts such as canned or boxed foods and frozen dinners. Extra salt makes your heart work harder and traps the fluid in your body for longer. Special Instructions: Take all of your medications as directed and remember to keep all of your doctor's appointments and follow-up as needed. Wishing you a happy and healthy New Year!!! You're being discharged home on a blood thinner, Eliquis. This is very important to take daily as directed until otherwise advised by her garbage collector, Dr. Hernandez. Being that you had been placed on a blood thinner is very important to watch for any signs of bleeding and notify your doctor immediately if you notice any abnormal bleeding and/or bruising. It is also important to remove any trip hazards from your home such as rugs or loose extension cords to prevent any unnecessary falls or injuries. Thank you for allowing us to participate in your care, it was truly a pleasure having you for our patient!!! [employer] will apply coupons for Eliquis. Discharge Disposition: HOME SELF-CARE <Selvin Gutierrez - Last Filed: 04/10/21 17:00> Providers Date of admission: 04/05/21 22:32 Attending physician: Mando Reyez MD Consults: 04/07/21 18:18 Consult Physician Routine Consulting Provider: Kobe Armendariz Consult Reason/Comments: new onset afib rvr PE/ right leg DVT Do you want consulting provider notified?: Yes Primary care physician: [facility] Course: I reviewed the documentation as provided by the KAUSHIK above, who is the original author of this note. I agree with the documented assessment and plan, with the following changes: None
[2021-04-10 11:16] LABS: Glucose,Whole Blood 132 mg/dL (75-99)
[2021-04-10 12:18] VITALS: BP 130/82; PULSE 57; RESP 18; TEMP 98.5
== END 2021-04-10 12:15 | disposition home or self-care (01) | DRG 176 ==
LOC: EC 19:13 → 3SCARD 22:32
PROVIDERS: ADMIT Internal Medicine; ATTEND Internal Medicine
DX: I26.99 Other pulmonary embolism without acute cor pulmonale (principal); I82.412 Acute embolism and thrombosis of left femoral vein; Z20.822 Contact with and (suspected) exposure to COVID-19; E78.5 Hyperlipidemia, unspecified; E11.9 Type 2 diabetes mellitus without complications; F32.A Depression, unspecified; F41.9 Anxiety disorder, unspecified; G47.33 Obstructive sleep apnea (adult) (pediatric); I11.9 Hypertensive heart disease without heart failure; I48.0 Paroxysmal atrial fibrillation; Z96.652 Presence of left artificial knee joint; Z79.84 Long term (current) use of oral hypoglycemic drugs; Z79.899 Other long term (current) drug therapy; Z79.01 Long term (current) use of anticoagulants; Z87.891 Personal history of nicotine dependence; Z98.890 Other specified postprocedural states; Z83.2 Family history of diseases of the blood and blood-forming organs and certain disorders involving the immune mechanism
CPT/HCPCS: 36415; 71045; 71275; 80048; 80053; 80061; 81003; 83036; 83735; 83880; 84100; 84132; 84443; 84484; 85025; 85730; 87040; 87635; 93306; 93970; 96365; 96366; 96367; 96375; 96376; 99291

== ENCOUNTER → 2022-08-09 | Outpatient (CLI) | payer OTHER ==
[2022-08-10 00:01] LABS: HCT 45.6 % (39.6-50.0); HGB 14.6 g/dL (13.0-17.0); MCH 29.2 pg (27.0-32.0); MCV 91.2 fL (80.0-97.0); Mean Platelet Volume 11.7 fL (9.5-12.2); NRBC Per 100 WBC 0 /100 WBCS (0.0-0.0); Platelet Count 166 X 10*3/uL (140-440); RDW 13.1 % (11.5-14.5); WBC 2.48 X 10*3/uL (4.50-10.00)
[2022-08-10 00:34] LABS: Basophils # (A) 0.05 X 10*3/uL (0.00-0.10); Eosinophils # (A) 0.04 X 10*3/uL (0.04-0.35); Eosinophils % (A) 1.6 %; Immature Grans, Automated 0 %; Lymphocytes # (A) 1.48 X 10*3/uL (0.90-5.00); Lymphocytes % (A) 59.7 %; Monocytes # (A) 0.25 X 10*3/uL (0.20-1.00); Monocytes % (A) 10.1 %; Neutrophils # (A) 0.66 X 10*3/uL (1.80-7.70); Neutrophils % (A) 26.6 %
[2022-08-10 00:35] LABS: RBC Morphology NORMAL
[2022-08-10 07:33] LABS: African American GFR (CKD) 83.5 (60.0-200.0); Anion Gap 8.7 mmol/L (10.00-18.00); BUN/Creat Ratio 11.09 Ratio (12.00-20.00); Blood Urea Nitrogen 12.2 mg/dL (9.0-27.0); Calcium 9.2 mg/dL (8.7-10.3); Non-African American GFR(CKD) 72.1 (60.0-200.0); Potassium 4.5 mmol/L (3.5-5.5)
[2022-08-10 07:43] LABS: INR 0.92 (0.90-1.11); Prothrombin Time 10.4 sec (9.9-11.9)
== END | disposition home or self-care (01) ==
LOC: LABPAT 09:14
PROVIDERS: ATTEND Orthopaedic Surgery
DX: Z01.812 Encounter for preprocedural laboratory examination (principal); Z22.322 Carrier or suspected carrier of Methicillin resistant Staphylococcus aureus
CPT/HCPCS: 80048; 85025; 85610; 87070

== ENCOUNTER 2022-09-02 08:07 | Day surgery (SDC) | payer OTHER ==
--- NOTE | 2022-09-01 08:49 | P.HPOR ---
History of Present Illness H&P Date: 09/01/22 The patient's a 62-year-old male who presents with progressive right knee pain for the past several years worsening recently. He's having pain with weightbearing activities. He notes intermittent swelling and giving way. He has been limping. He's tried medications along with injections only temporary partial relief. Review of Systems Negative except as in HPI Past Medical History Past Medical History: Diabetes Mellitus, Hyperlipidemia, Hypertension, Osteoarthritis (OA), Sleep Apnea/CPAP/BIPAP Additional Past Medical History / Comment(s): no cpap used, left knee pain History of Any Multi-Drug Resistant Organisms: None Reported Past Surgical History: Heart Catheterization, Orthopedic Surgery Additional Past Surgical History / Comment(s): juno knee arthroscopies, multiple left hand surgeries after injury, left total knee arthroplasty Past Anesthesia/Blood Transfusion Reactions: Motion Sickness, Postoperative Nausea & Vomiting (PONV) Additional Past Anesthesia/Blood Transfusion Reaction / Comment(s): motion sickness when younger Past Psychological History: Anxiety, Depression Smoking Status: Former smoker Past Alcohol Use History: Occasional Additional Past Alcohol Use History / Comment(s): quit smoking 20 yrs ago, smoked for < 1 yr Past Drug Use History: None Reported - Past Family History Mother Family Medical History: No Reported History Medications and Allergies Home Medications Medication Instructions Recorded Confirmed Type Atorvastatin [Lipitor] 20 mg PO DAILY 11/15/19 04/05/21 History PARoxetine HCL [Paxil] 40 mg PO DAILY 11/15/19 04/05/21 History buPROPion HCL [Wellbutrin XL] 150 mg PO DAILY 11/15/19 04/05/21 History lisinopriL [Zestril] 20 mg PO DAILY 11/15/19 04/05/21 History hydrOXYzine HCL 25 mg PO BID 03/18/21 04/05/21 History traMADol HCl [Ultram] 50 mg PO Q6H PRN #24 tab 03/20/21 04/05/21 Rx HYDROcodone/APAP 7.5-325MG [[place] 1 - 2 tab PO Q6HR PRN 04/05/21 04/05/21 History 7.5-325] metFORMIN HCL [Glucophage] 500 mg PO DAILY 04/05/21 04/05/21 History Apixaban [Eliquis Starter Pack 5 - 10 mg PO DIRECTED 30 Days 04/09/21 Rx (for VTE)] #1 each Metoprolol Tartrate [Lopressor] 50 mg PO Q12H 30 Days #60 tab 04/09/21 Rx Allergies Allergy/AdvReac Type Severity Reaction Status Date / Time No Known Allergies Allergy Verified 04/05/21 21:55 Physical Examination - Knee right Appearance: effusion Effusion grade: grade 2 Varus alignment in stance: 10 degrees Tenderness with palpation: anterior, medial Pain: throughout ROM Gait: limping ROM: extension: -15 degrees ROM: flexion: 110 degrees Crepitus with motion: Yes Strength: extension: 5/5 Strength: flexion: 5/5 Meniscal tests: medial meniscal tests: positive, medial joint line pain: positive Results The patient is a well-developed well-nourished male approximately 6 foot tall, 280 pounds of endomorphic habitus. HEENT exam is nonfocal, neck is supple. He has painless passive motion of the right hip. Straight leg raise is negative. His distal neurovascular appears intact right lower extremity. - Diagnostic results Knee x-ray: image reviewed (Reviews of the right knee obtaining office show severe medial compartment narrowing with [id number] changes and subchondral sclerosis.) Assessment and Plan Assessment: Right knee severe tricompartmental osteoarthrosis Obesity Heart disease on anticoagulation Plan: I talked to the patient regarding his condition along with treatment options. At this point he is quite symptomatic having pain and mechanical symptoms related to his osteoarthrosis despite attempted conservative measures. After a thorough discussion he opts to proceed with surgery. We'll plan to proceed with right total knee arthroplasty. Risks and benefits were discussed at length in layman's terms. We will reinstitute his anticoagulation postoperatively.
[~2022-09-02 08:07] MED LIST changes: +ACETAMINOPHEN TAB 500 MG TAB PO PRN; +DEXAMETHASONE SOD PHOSPHATE 4 MG/ML 1 ML VIAL IV ONE; +HYDROmorphone 0.5 MG/0.5 ML SYRINGE IVP PRN; -LACTATED RINGERS 1,000 ML IV ONE; -LACTATED RINGERS 1,000 ML IV SCH; -LIDOCAINE 1% 20 ML VIAL (10MG/ML) FOR IV START INTRADERMA ONE; -LIDOCAINE 1% INJ 10MG/ML (20 ML MDV) ONE; +MELOXICAM 7.5 MG TAB PO PRN; +ONDANSETRON 4 MG/2 ML VIAL IVP ONE; -PROPOFOL 10 MG/ML 20 ML VIAL IV ONE; +TRANEXAMIC ACID IN NACL,ISO-OS 1,000 MG in SALINE 1 100ML.BAG IVPB PRN; +ceFAZolin 3 GM in SODIUM CHLORIDE 0.9% 100 ML IVPB PRN
[2022-09-02 08:46] LABS: Glucose,Whole Blood 125 mg/dL (70-110)
[2022-09-02] MEDS: LACTATED RINGERS 1,000 ML IV SCH (08:51)
[2022-09-02] MEDS ORDERED: fentaNYL (PF) 50 MCG/ML 2 ML AMP IVP ONE (09:34)
[2022-09-02] MEDS ORDERED: MIDAZOLAM 2 MG/2 ML VIAL IVP ONE (09:34)
[2022-09-02] MEDS ORDERED: ROPIVACAINE 5 MG/ML 30 ML VIAL ONE (10:06)
[2022-09-02] MEDS ORDERED: TRANEXAMIC ACID IN NACL,ISO-OS 1,000 MG/100 ML BAG ONE (10:06)
[2022-09-02] MEDS ORDERED: PROPOFOL 10 MG/ML 20 ML VIAL IV ONE (10:06)
[2022-09-02] MEDS ORDERED: SODIUM CHLORIDE 0.9% (PF) 10 ML VIAL ONE (10:06)
[2022-09-02] MEDS ORDERED: MIDAZOLAM 2 MG/2 ML VIAL ONE (10:06)
[2022-09-02] MEDS ORDERED: fentaNYL (PF) 50 MCG/ML 2 ML AMP ONE (10:06)
[2022-09-02] MEDS ORDERED: ceFAZolin 3,000 MG in SODIUM CHLORIDE 0.9% IRRIGATIO 3,000 ML IRRIGATION ONE (10:43)
[2022-09-02] MEDS ORDERED: NALOXONE 0.4 MG/ML 1 ML VIAL IV PRN (12:06)
[2022-09-02] MEDS ORDERED: MAGNESIUM HYDROXIDE 2,400 MG/10 ML CUP PO PRN (12:06)
[2022-09-02] MEDS ORDERED: HYDROcodone/APAP 5-325MG 1 EACH TAB PO PRN (12:06)
[2022-09-02] MEDS ORDERED: HYDROmorphone 0.5 MG/0.5 ML SYRINGE IVP PRN (12:06)
--- NOTE | 2022-09-02 12:23 | P.OP ---
Date of Procedure: 09/02/22 Preoperative Diagnosis: Right knee severe tricompartmental osteoarthrosis Postoperative Diagnosis: Same Procedure(s) Performed: Right total knee arthroplastycementedposterior stabilized Implants: Depuy Attune size 8 cemented femoral component, size 7 cemented tibial component, 9 mm articular surface, 38 mm cemented patellar component. This is a posterior stabilized implant. Anesthesia: regional, spinal Surgeon: Prashant Cruz Underwater Photographer #1: Gera Vora Estimated Blood Loss (ml): 50 Pathology: none sent Condition: stable Disposition: PACU Indications for Procedure: The patient is a 62-year-old male presents with progressive right knee pain secondary to osteoarthritis despite conservative measures. A discussion of the risks and benefits of operative intervention versus continued conservative measures was made with patient. He opted procedure surgery. Operative risks to include infection, neurovascular injury, fracture, development of blood clots, possible component loosening/failure and possible need for subsequent procedures was discussed. Informed consent was obtained. Operative Findings: As below Description of Procedure: The patient was brought to the operating room, and after induction of spinal anesthesia the right lower extremity was prepped and draped in a normal fashion. The tourniquet was inflated to 270 mm marker. A longitudinal incision extending 3 finger breaths above the superior pole of patella extending to the medial aspect the tibial tubercle was then made. The skin and subcutaneous tissues were divided sharply. Electrocautery was used for hemostasis. A medial parapatellar arthrotomy was performed. The medial soft tissues to include the superficial and deep portions of the medial collateral ligament were elevated brannon bperiosteally. The patella was everted. A portion of the retropatellar fat pad was excised sharply. The anterior cruciate ligament was sacrificed. Blunt retractors were placed. A starting hole was made in the distal femur 1 cm anterior to the posterior cruciate ligament origin. An intramedullary femoral guide was then inserted planning on 5 valgus distal cut with 9 mm distal resection. The cutting block was pinned in place. The distal cut was then made. The posterior referencing sizing guide was utilized. I felt size 8 was most appropriate. 3 of external rotation was built into the system and verified off the trans-epicondylar axis and the posterior condyles. The cutting block was pinned in place. The anterior, posterior, and chamfer cuts then made. Bone fragments were removed. The intercondylar guide was placed and the notch cut was made with a sagittal saw. The bone block was removed in one fragment. The trial component was then placed. There is good anterior to posterior and medial to lateral fit. The distal peg holes were drilled. The trial component was removed. Attention was then paid towards preparing the proximal tibia. An extra medullary guide was utilized in line with the tibial shaft and second metatarsal distally. I planned on 2 mm resection from the medial compartment. The cutting block was pinned in place. The proximal tibial cut was then made. The bone was removed in one fragment. The remnants of the medial and lateral menisci were excised at the capsular junction with electrocautery. The tibia sized most appropriately at size 7. The trial femoral and tibial components were placed along with a 9 mm articular surface. I was able to obtain full flexion and extension with internal and external rotation. After several flexion and extension cycles, the tibial rotation was marked with electrocautery line with the medial one third of the tibial tubercle. Attention was then paid towards preparing the patella. A patella reamer was utilized taking stem to 14 mm of bone stock. A good flush cut was made. The patella sized most appropriately 9 mm. The peg holes were drilled. The trial components placed. I had good patellofemoral tracking with no hands technique. The trial components were then removed. The tibia was prepared in the appropriate rotation with appropriate drill and keel punch. The posterior osteophytes were removed with a curved osteotome. The flexion and extension gaps were checked and felt to be symmetric at 9 mm. A trial components were then removed. The bony surfaces were prepared with pulsatile lavage and dried. The tibial component was then cemented place was fully seated. Excess cement was removed. The femoral component cemented place and was fully seated. Excess cement was re moved. The trial 9 mm articular surface was placed and the knee was put in full extension. The patella component was cemented place. After the cement had sufficiently hardened, the knee was again taken through a range of motion. Again I was able to obtain full flexion and extension with varus and valgus stress. The trial 9 mm articular surface was removed and the final one inserted. This was fully seated. Care was taken to avoid any soft tissue interposition. Pulsatile lavage was again utilized. The medial parapatellar arthrotomy was closed with #2 Ethibond suture. The tourniquet was deflated with approximately 60 minutes total tourniquet time. Final hemostasis was obtained with the cautery. There was minimal bleeding therefore a deep drain was not placed. The subcutaneous tissues were reapproximated with interrupted 2-0 Vicryl sutures. The skin was reapproximated with 3-0 subcuticular strata fix suture. Skin tape and adhesive was applied. A sterile dressing was applied. The patient was awoken from sedation and transferred to recovery room in good condition. Blood loss was estimated at 50 mL. No complications were incurred. Sponge and needle counts were correct at the end of the case. Gera JURADO assisted during the major components of this case to include exposure, bone resection, implantation, and closure.
[2022-09-02] MEDS ORDERED: ROPIVACAINE 1,100 MG, SODIUM CHLORIDE 0.9% 500 ML 330 ML, EMPTY PAIN BALL 1 EACH MISCELLANE PRN ×2 (12:30)
--- NOTE | 2022-09-02 13:03 | XR ---
EXAMINATION TYPE: XR knee limited RT DATE OF EXAM: 09/02/2022 COMPARISON: NONE TECHNIQUE: Two views submitted HISTORY: Post op FINDINGS: There is a prosthetic knee in near anatomic alignment. There is soft tissue edema and emphysema. IMPRESSION: 1. Postoperative change. Appears in near-anatomic alignment
[2022-09-02 14:49] LABS: Glucose,Whole Blood 128 mg/dL (70-110)
--- NOTE | 2022-09-02 15:05 | P.CONS ---
History of Present Illness - Reason for Consult Consult date: 09/02/22 DM 2 Requesting physician: Prashant Cruz - Chief Complaint knee pain - History of Present Illness Patient is a 62-year-old male with diabetes, hypertension, dyslipidemia and prior DVT/PE after left total knee surgery who presented to the hospital for elective right total knee arthroplasty. Patient tolerated the procedure well without any immediate postoperative complications. Patient seen and examined at bedside. He is doing well. He denies any chest pain, shortness of breath, nausea, vomiting, lightheaded or dizziness. Pain is well controlled. He reports that he has been taking Eliquis up to 2 days prior to surgery 5 mg twice daily after having a serious DVT with PE after his right total knee replacement approximately 13 months ago. He denies any recent cough, cold, fever, flu. He reports that he last had his A1c checked approximately 6 weeks ago and it was less than 7 and he has been taking Xanax 0.5 mg weekly. Vital signs reviewed General: nontoxic, no distress, appears at stated age Derm: warm, dry Eyes: EOMI, no lid lag, anicteric sclera, pupils equal round reactive to light ENT: Nose and ears atraumatic, no thrush, no pharyngeal erythema Cardiovascular: S1S2 reg, no murmur, positive posterior tibial pulse bilateral, no edema, capillary refill less than 2 seconds Lungs: Decreased breath sounds bilateral, no rhonchi, no rales, no wheeze, no accessory muscle use Abdominal: soft, nontender to palpation, no guarding, no appreciable organomegaly, normal bowel sounds Ext: no gross muscle atrophy, muscle strength 5 out of 5 in all 4 extremities, no contractures Neuro: CN II-XII grossly intact, light touch intact all 4 extremities, finger to nose within normal limits, Psych: Alert, oriented, appropriate affect Assessment: Patient is a 62-year-old male status post right total knee arthroplasty Diabetes mellitus, [id number] Prior PE/DVT related to left knee replacement Hypertension Dyslipidemia Imaging: Knee q-ein-nvwzlbwmsmrky changes near anatomic alignment Data Review: Vitals reviewed pulse 66 respirations 18 blood pressure 105/62, O2 sat 98% on 2 L. Patient did have an episode of hypoxemia 88% on room air Preoperative blood work reviewed hemoglobin 14.6, white blood cell count 2.48, creatinine 1.1 with GFR 83.5 Plan: -Case discussed with ADRIEN Boss for Ortho. Discontinue Xarelto and resume patient's home Eliquis 5 mg twice daily -Sliding-scale insulin, follow blood sugars -Resume home lisinopril, metoprolol, and Lipitor -Follow blood pressures -CBC in a.m. Thank you for allowing us to participate in the care of this pleasant patient. Do not hesitate to contact us with questions. Someone can be reached from the [facility] hospitalist group all hours of the day at [phone] or via [employer]. This dictation was prepared using [employer] voice recognition software. Though every attempt is made to correct errors during during dictation some may still exist. Past Medical History Past Medical History: Diabetes Mellitus, Deep Vein Thrombosis (DVT), Hyperlipidemia, Hypertension, Osteoarthritis (OA), Pulmonary Embolus (PE), Sleep Apnea/CPAP/BIPAP Additional Past Medical History / Comment(s): DVT and PE 2 weeks post left total knee surgery, hx no cpap used History of Any Multi-Drug Resistant Organisms: None Reported Past Surgical History: Heart Catheterization, Orthopedic Surgery Additional Past Surgical History / Comment(s): juno knee arthroscopies, multiple left hand surgeries after injury, left total knee arthroplasty Past Anesthesia/Blood Transfusion Reactions: Motion Sickness, Postoperative Nausea & Vomiting (PONV) Additional Past Anesthesia/Blood Transfusion Reaction / Comm: motion sickness when younger. no hx blood transfusion Smoking Status: Former smoker - Past Family History Mother Family Medical History: No Reported History Medications and Allergies Home Medications Medication Instructions Recorded Confirmed Type Atorvastatin [Lipitor] 20 mg PO DAILY 11/15/19 09/01/22 History PARoxetine HCL [Paxil] 40 mg PO QAM 11/15/19 09/01/22 History buPROPion HCL [Wellbutrin XL] 150 mg PO QAM 11/15/19 09/01/22 History lisinopriL [Zestril] 20 mg PO QAM 11/15/19 09/01/22 History hydrOXYzine HCL 25 mg PO QAM 03/18/21 09/01/22 History Metoprolol Tartrate [Lopressor] 50 mg PO Q12H 30 Days #60 tab 04/09/21 09/01/22 Rx Apixaban [Eliquis Starter Pack 5 mg PO BID 09/01/22 09/01/22 History (for VTE)] Semaglutide [Ozempic] 0.5 mg SQ ROJAS 09/01/22 09/01/22 History Allergies Allergy/AdvReac Type Severity Reaction Status Date / Time No Known Allergies Allergy Verified 09/02/22 08:18 Physical Exam Osteopathic Statement: *. No significant issues noted on an osteopathic structural exam other than those noted in the History and Physical/Consult. Vitals: Vital Signs Temp Pulse Resp BP Pulse Ox 09/02/22 14:30 66 18 105/62 98 09/02/22 14:00 60 18 108/61 98 09/02/22 13:30 63 18 101/61 98 09/02/22 13:15 61 16 104/66 97 09/02/22 13:08 88 L 09/02/22 13:00 61 16 103/64 98 09/02/22 12:45 63 16 103/61 96 09/02/22 12:30 66 16 112/58 96 09/02/22 12:23 97.8 F 72 16 112/56 96 09/02/22 09:56 66 20 133/81 98 09/02/22 08:34 97.1 F L 76 20 144/86 95 Intake and Output 09/02/22 09/02/22 09/02/22 06:59 14:59 22:59 Intake Total 1551 Output Total 50 Balance 1501 Intake: IV 1551 Output: Estimated Blood Loss 50 Other: Weight 131.9 kg Results Labs: Abnormal Lab Results - Last 24 Hours (Table) 09/02/22 09/02/22 Range/Units 08:44 14:48 POC Glucose (mg/dL) 125 H 128 H (70-110) mg/dL
[2022-09-02] MEDS ORDERED: MELATONIN 5 MG TABLET PO PRN (15:52)
[2022-09-02] MEDS ORDERED: LORazepam 0.5 MG TAB PO PRN (15:53)
--- NOTE | 2022-09-02 15:54 | P.ANPRN ---
Procedure Note - Anesthesia - Nerve Block Performed Right Adductor Canal Infusion Time Out Performed: Yes ([id number]) Date of Procedure: 09/02/22 Location of Patient: PreOp Indication: Acute Post-Operative Pain, Dx/Pain Location (Right knee), Requested by Surgeon Specifically requested for management of pain by DrChrista: Prashant Cruz Sedation Type: Sedate with meaningful contact maintained Preparation: Sterile Prep, Sterile Dressing Position: Supine Catheter: Indwelling Needle Types: Pajunk Needle Gauge: 18 Ultrasound used to visualize needle placement: Yes Ultrasound used to observe medication spread: Yes Injectate: 0.5% Ropivacaine (see comment for volume) (20 mL +10 mL of normal saline) Blood Aspirated: No Pain Paresthesia on Injection Noted: No Resistance on Injection: Normal Image Stored and Saved: Yes Events: Uneventful and Well Tolerated Right iPack Single Time Out Performed: Yes Location of Patient: PreOp Indication: Acute Post-Operative Pain, Dx/Pain Location (Right knee), Requested by Surgeon Specifically requested for management of pain by DrChrista: Prashant Cruz Sedation Type: Sedate with meaningful contact maintained Preparation: Sterile Prep Position: Left Lateral Catheter: None Needle Types: Pajunk Needle Gauge: 21 Ultrasound used to visualize needle placement: Yes Ultrasound used to observe medication spread: Yes Injectate: 0.5% Ropivacaine (see comment for volume) (20 mL +10 mL of normal saline) Blood Aspirated: No Pain Paresthesia on Injection Noted: No Resistance on Injection: Normal Image Stored and Saved: Yes Events: Uneventful and Well Tolerated
[2022-09-02] MEDS ORDERED: DEXTROSE 50% SYRINGE 50 ML IVP PRN ×2 (15:58)
[2022-09-02] MEDS: HYDROcodone/APAP 7.5-325MG 1 EACH TAB PO PRN ×2 (16:44→21:32)
[2022-09-02 16:56] LABS: Glucose,Whole Blood 180 mg/dL (70-110)
[2022-09-02] MEDS: INSULIN ASPART (NovoLOG) 100 UNIT/ML VIAL SQ SCH ×2 (17:15→20:45)
[2022-09-02] MEDS: ceFAZolin 3 GM in SODIUM CHLORIDE 0.9% 100 ML IVPB SCH (17:16)
[2022-09-02] MEDS: HYDROmorphone 1 MG/ML 1 ML SYRINGE IVP PRN (18:33)
[2022-09-02 20:39] LABS: Glucose,Whole Blood 145 mg/dL (70-110)
[2022-09-02] MEDS ORDERED: SENNOSIDES-DOCUSATE SODIUM 1 EACH TAB PO SCH (21:00)
[2022-09-02] MEDS: METOPROLOL TARTRATE 50 MG TAB PO SCH (21:32)
[2022-09-02] MEDS: APIXABAN 5 MG TAB PO SCH (21:32)
[2022-09-03] MEDS: HYDROmorphone 1 MG/ML 1 ML SYRINGE IVP PRN ×2 (00:37→08:04)
[2022-09-03] MEDS: ceFAZolin 3 GM in SODIUM CHLORIDE 0.9% 100 ML IVPB SCH (02:42)
[2022-09-03] MEDS: HYDROcodone/APAP 7.5-325MG 1 EACH TAB PO PRN ×2 (03:50→11:06)
[2022-09-03 05:51] LABS: Glucose,Whole Blood 115 mg/dL (70-110)
[2022-09-03] MEDS: LACTATED RINGERS 1,000 ML IV SCH (06:10)
[2022-09-03] MEDS: INSULIN ASPART (NovoLOG) 100 UNIT/ML VIAL SQ SCH ×2 (06:10→11:16)
[2022-09-03 07:25] VITALS: RESP 16
--- NOTE | 2022-09-03 07:31 | P.PN ---
Progress Note - Text Progress Note Date: 09/03/22 Postoperative day # 1 status post total knee arthroplasty, on adductor canal perineural catheter placed for postoperative analgesia. Ropivacaine 0.2% 8 mL per hour through ON-Q pump continuous infusion. Pain is well controlled. On visual analog scale 7/10 Patient is taking PRN oral pain medications. Catheter site: Looks Ok. There is no erythema or tenderness. Continue with the current pain management plan and will follow.
[2022-09-03] MEDS: METOPROLOL TARTRATE 50 MG TAB PO SCH (08:03)
[2022-09-03] MEDS: APIXABAN 5 MG TAB PO SCH (08:03)
[2022-09-03 08:40] LABS: HCT 38.7 % (39.0-53.0); HGB 12.8 gm/dL (13.0-17.5); Mean Platelet Volume 9.2; Platelet Count 145 k/uL (150-450); RBC 4.12 m/uL (4.30-5.90); RDW 14.3 % (11.5-15.5); WBC 5.6 k/uL (3.8-10.6)
[2022-09-03] MEDS ORDERED: lisinopriL 20 MG TAB PO SCH (09:00)
[2022-09-03] MEDS ORDERED: RIVAROXABAN 10 MG TAB PO SCH (09:00)
[2022-09-03] MEDS ORDERED: ATORVASTATIN 20 MG TAB PO SCH (09:00)
[2022-09-03] MEDS ORDERED: PARoxetine 20 MG TAB PO SCH (09:00)
[2022-09-03] MEDS ORDERED: buPROPion XL 150 MG TAB.ER.24H PO SCH (09:00)
[2022-09-03 11:05] LABS: Glucose,Whole Blood 141 mg/dL (70-110)
--- NOTE | 2022-09-03 11:19 | P.DS ---
Providers Date of admission: 09/02/2022 Expected date of discharge: 09/03/22 Attending physician: Prashant Cruz Consults: 09/02/22 12:08 Consult Physician Routine Consulting Provider: Anyi Vega Consult Reason/Comments: Medical Management s/p right total knee arthroplasty Do you want consulting provider notified?: Yes Primary care physician: [facility] Course: Date of admission: 09/02/2022 Date of discharge: 09/03/2022 Admission diagnosis: Right knee osteoarthritis Discharge diagnosis: same Attending physician: Dr. Cruz Surgical procedures: Right total knee arthroplasty Brief history: Patient is a 62-year-old male with a history of progressive primary right knee osteoarthritis. At this point patient has failed conservative treatment measures and has opted to proceed with a elective right total knee arthroplasty. Hospital course: Details of patient's surgery can be found in operative report. Patient tolerated the procedure well and was subsequently transported to orthopedic floor. Patient's orthopeidc and medical care was provided daily. Patient had daily laboratory tests performed for evaluation of overall blood counts. Patient had daily physical therapy to include strengthening range of motion as well as education with walker ambulation. Patient was treated with eliquis for their postoperative DVT prophylaxis during their inpatient stay. Patient was noted to have a relatively uneventful postoperative course. Patient reported satisfactory pain control with oral pain medications by postoperative day 1. Patient showed satisfactory progress with physical therapy. Patient moved steadily through the program and had no difficulty meeting the goals by postoperative day 1. Given patient's otherwise satisfactory course and having met physical therapy goals, plan is to discharge patient home with health services on postoperative day 1. Discharge condition/disposition: Patient will be discharged home with health services in stable condition. Discharge medications: Instructions are given on resumption of patient's normal daily medications per primary care recommendation, in addition patient will be prescribed [place]; Vistaril; senna. Discharge instructions: 1. Wound care and infection precautions, keep incision dry and covered while showering, no lotions, creams, moisturizers. No soaking, tubs, pools, hottubs. Do not scrub over the incision. 2. Weight-bear as tolerated with walker / cane until follow-up. 3. Ice and elevate when necessary. Do not exceed 20 minutes per hour with ice pack. 4. Utilize compression sleeve until seen at first follow up appointment. 5. Visiting nursing care. 6. Home physical therapy including home CPM. 7. Pain meds and anticoagulants per prescription. 8. Pain medication has potential to cause constipation. Increase oral fluid and fiber intake. Contact primary care provider if you have not had a bowel movement within 48 hours after discharge 9. No anti-inflammatory medication until discussed at first post operative visit, this including Motrin, Aleve, Mobic, Diclofenac. 10. Follow up in office at 2 weeks postop with Vinicio Lr PA-C / Gera Vora PA-C 11. Follow up with your primary care doctor 7-10 days after discharge. 12. Contact [facility] with any questions, . Assessment: Right knee osteoarthritis Procedures: Right total knee arthroplasty Patient Condition at Discharge: Good Plan - Discharge Summary Discharge Rx Participant: No New Discharge Prescriptions: New hydrOXYzine pamoate [Vistaril] 25 mg PO TID #21 capsule HYDROcodone/APAP 7.5-325MG [[place] 7.5] 1 - 2 each PO Q6HR PRN #36 tab PRN Reason: Pain Sennosides/Docusate Sodium [Senna Plus 8.6-50 mg Softgel] 1 each PO DAILY #20 capsule No Action lisinopriL [Zestril] 20 mg PO QAM buPROPion HCL [Wellbutrin XL] 150 mg PO QAM Atorvastatin [Lipitor] 20 mg PO DAILY PARoxetine HCL [Paxil] 40 mg PO QAM Semaglutide [Ozempic] 0.5 mg SQ ROJAS hydrOXYzine HCL 25 mg PO QAM Metoprolol Tartrate [Lopressor] 50 mg PO Q12H 30 Days #60 tab Apixaban [Eliquis Starter Pack (for VTE)] 5 mg PO BID Discharge Medication List Atorvastatin [Lipitor] 20 mg PO DAILY 11/15/19 [History] PARoxetine HCL [Paxil] 40 mg PO QAM 11/15/19 [History] buPROPion HCL [Wellbutrin XL] 150 mg PO QAM 11/15/19 [History] lisinopriL [Zestril] 20 mg PO QAM 11/15/19 [History] hydrOXYzine HCL 25 mg PO QAM 03/18/21 [History] Metoprolol Tartrate [Lopressor] 50 mg PO Q12H 30 Days #60 tab 04/09/21 [Rx] Apixaban [Eliquis Starter Pack (for VTE)] 5 mg PO BID 09/01/22 [History] Semaglutide [Ozempic] 0.5 mg SQ ROJAS 09/01/22 [History] HYDROcodone/APAP 7.5-325MG [[place] 7.5] 1 - 2 each PO Q6HR PRN #36 tab 09/03/22 [Rx] Sennosides/Docusate Sodium [Senna Plus 8.6-50 mg Softgel] 1 each PO DAILY #20 capsule 09/03/22 [Rx] hydrOXYzine pamoate [Vistaril] 25 mg PO TID #21 capsule 09/03/22 [Rx] Follow up Appointment(s)/Referral(s): Gera Vora, EARNESTINE [PHYSICIAN PATIENT FINANCIAL SERVICES MANAGER] - 2 Weeks [facility], [NON-STAFF] - As Needed Patient Instructions/Handouts: Knee Replacement (DC) Activity/Diet/Wound Care/Special Instructions: Orthopedic Discharge Instructions: 1. Wound care and infection precautions, keep incision dry and covered while showering, no lotions, creams, moisturizers. No soaking, pools, hot tubs. Do not scrub over incision. 2. Weight-bear as tolerated with walker / cane until follow-up. 3. Ice and elevate when necessary. Do not exceed 20 minutes per hour with ice pack. 4. Utilize compression sleeve until seen at first follow up appointment. 5. Pain meds and anticoagulants per prescription. 6. Pain medication has potential to cause constipation. Increase oral fluid and fiber intake. Contact primary care provider if you have not had a bowel movement within 48 hours after discharge. 7. No anti-inflammatory medication until discussed at first post operative visit, this including Motrin, Aleve, Mobic, Diclofenac. 8. Follow up in office at 2 weeks postop with Vinicio Lr PA-C / Gera Vora PA-C 9. Follow up with your primary care doctor 7-10 days after discharge. 10. Contact [facility] with any questions, . Keep incision clean, dry and covered while showering, cover fusion tape was removed. Keep fusion tape on until follow-up in office at 2 weeks.
--- NOTE | 2022-09-03 11:25 | P.PN ---
Subjective Progress Note Date: 09/03/22 Principal diagnosis: Right knee osteoarthritis Patient was seen at bedside this morning lying in the left lateral, position with pillow between her knees. Dressing is present over the right knee. Patient says he is having some right knee pain at this time. Patient says most the pain is just above the knee and in the calf. Patient says she has urinated several times since surgery yesterday. Patient says he did work with physical therapy this morning and walked on the flores and up-and-down steps. Patient says he is looking forward to going home later today. Patient says she does have a walker and a cane at home. Patient says he has not had a bowel movement, however, patient says he has been passing gas. Patient denies chest pain, fever, shortness breath, nausea, vomiting, change in vision, loss of bowel/bladder control. Objective - Vital Signs Vital signs: Vital Signs Temp 98.3 F 09/03/22 07:05 Pulse 61 09/03/22 07:05 Resp 16 09/03/22 07:05 BP 106/62 09/03/22 07:05 Pulse Ox 96 09/03/22 07:05 FiO2 Intake & Output 09/02/22 09/03/22 09/03/22 18:59 06:59 18:59 Intake Total 1551 720 Output Total 50 Balance 1501 720 Weight 131.9 kg Intake: IV 1551 Oral 720 Output: Estimated Blood Loss 50 Other: # Voids 1 1 - Exam Right knee: Incision is clean, dry, and intact. The exofin fusion tape is in good condition. There is minimal soft tissue swelling and ecchymosis surrounding the medial and lateral aspects of the incision. Calf is soft, no tenderness with palpation. Plantar flexion, dorsiflexion, EHL, FHL are intact. Sensory exam to light touch throughout the extremity is intact, dorsal pedis pulses 2+. - Labs CBC & Chem 7: 09/03/22 07:51 Labs: Abnormal Lab Results - Last 24 Hours (Table) 09/02/22 09/02/22 09/02/22 Range/Units 14:48 16:54 20:37 RBC (4.30-5.90) m/uL Hgb (13.0-17.5) gm/dL Hct (39.0-53.0) % Plt Count (150-450) k/uL POC Glucose (mg/dL) 128 H 180 H 145 H (70-110) mg/dL 09/03/22 09/03/22 Range/Units 05:49 07:51 RBC 4.12 L (4.30-5.90) m/uL Hgb 12.8 L (13.0-17.5) gm/dL Hct 38.7 L (39.0-53.0) % Plt Count 145 L (150-450) k/uL POC Glucose (mg/dL) 115 H (70-110) mg/dL Assessment and Plan Assessment: 1. Right knee osteoarthritis - Postop day #1 status post right total knee arthroplasty Plan: 1. Right knee osteoarthritis - right total knee arthroplasty performed yesterday, 09/02/2022. Patient stable at bedside this morning. Patient did do well with physical therapy this morning. Discharge home today with health services. 2. Appreciate medical management 3. Pain management - [place] 4. DVT prophylaxis - eliquis 5 mg BID 5. GI prophylaxis - senna 6. PT/OT - weightbearing as tolerated with walker 7. Encourage incentive spirometer use 8. Discharge planning - home with health services today. Time with Patient: Less than 30
--- NOTE | 2022-09-03 12:06 | P.PN ---
Subjective Progress Note Date: 09/03/22 (delayed charting seen at 0945) Patient is a 62-year-old male with diabetes, hypertension, dyslipidemia and prior DVT/PE after left total knee surgery who presented to the hospital for rafy ctive right total knee arthroplasty. Patient tolerated the procedure well without any immediate postoperative complications. Patient seen and examined at bedside. He is doing well. Pain is well-co ntrolled. No shortness of breath. We discussed that his platelets are slightly low today. He is aware he needs a repeat CBC. Vital signs reviewed General: nontoxic, no distress, appears at stated age Cardiovascular: S1S2 reg, no murmur, positive posterior tibial pulse bilateral, Lungs: Decreased breath sounds bilateral, no rhonchi, no rales , no accessory muscle use Abdominal: soft, nontender to palpation, no guarding, no appreciable organomegaly Ext: no gross muscle atrophy, no edema b/l lower extremities, no contractures Neuro: CN II-XI grossly intact, no focal neuro deficits Psych: Alert, oriented, appropriate affect Assessment: Patient is a 62-year-old male status post right total knee arthroplasty Acute blood loss anemia, anticipated outcome of surgery Thrombcytopenia Diabetes mellitus, [id number] 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 Amos - Discharge med rec addressed. - Medically optimized for discharge. - Will resume all prior home meds This dictation was prepared using [employer] voice recognition software. Though every attempt is made to correct errors during dictation some may still exist. Objective - Vital Signs Vital signs: Vital Signs Temp 98.3 F 09/03/22 07:05 Pulse 61 09/03/22 07:05 Resp 16 09/03/22 07:05 BP 106/62 09/03/22 07:05 Pulse Ox 96 09/03/22 07:05 FiO2 Intake & Output 09/02/22 09/03/22 09/03/22 18:59 06:59 18:59 Intake Total 1551 720 Output Total 50 Balance 1501 720 Weight 131.9 kg Intake: IV 1551 Oral 720 Output: Estimated Blood Loss 50 Other: # Voids 1 1 - Labs CBC & Chem 7: 09/03/22 07:51 Labs: Abnormal Lab Results - Last 24 Hours (Table) 09/02/22 09/02/22 09/02/22 Range/Units 14:48 16:54 20:37 RBC (4.30-5.90) m/uL Hgb (13.0-17.5) gm/dL Hct (39.0-53.0) % Plt Count (150-450) k/uL POC Glucose (mg/dL) 128 H 180 H 145 H (70-110) mg/dL 09/03/22 09/03/22 09/03/22 Range/Units 05:49 07:51 11:04 RBC 4.12 L (4.30-5.90) m/uL Hgb 12.8 L (13.0-17.5) gm/dL Hct 38.7 L (39.0-53.0) % Plt Count 145 L (150-450) k/uL POC Glucose (mg/dL) 115 H 141 H (70-110) mg/dL
[2022-09-03 13:44] VITALS: BP 108/58; PULSE 70; TEMP 99.1
== END 2022-09-03 14:19 | disposition home health service (06) ==
LOC: OR 08:07 → 4SSUR 12:23 → OR 09-03 14:19
PROVIDERS: ATTEND Orthopaedic Surgery
DX: M17.11 Unilateral primary osteoarthritis, right knee (principal); G89.18 Other acute postprocedural pain; E11.9 Type 2 diabetes mellitus without complications; E78.5 Hyperlipidemia, unspecified; I10 Essential (primary) hypertension; G47.30 Sleep apnea, unspecified; Z96.652 Presence of left artificial knee joint; F41.9 Anxiety disorder, unspecified; F32.A Depression, unspecified; Z87.891 Personal history of nicotine dependence; F10.20 Alcohol dependence, uncomplicated; Z79.84 Long term (current) use of oral hypoglycemic drugs; Z79.899 Other long term (current) drug therapy; Z79.01 Long term (current) use of anticoagulants
CPT/HCPCS: 97161; 64448; 64999; 85027; 73560; 27447; C1713 ×2; C1776; C1751; J2250; J1100; J0690 ×3; J2405; J3010; J1170 ×2; J2795

== ENCOUNTER 2023-05-27 11:55 | Observation (INO) | payer OTHER ==
--- NOTE | 2023-05-27 12:10 | ED ---
Chest Pain HPI - General Source: patient, RN notes reviewed Mode of arrival: ambulatory Limitations: no limitations - History of Present Illness Complaint: chest pain <Laney Marvin - Last Filed: 05/27/23 12:06> - History of Present Illness MD Complaint: chest pain -: days(s) Onset: during rest Pain Location: substernal Pain Radiation: LUE Severity: moderate Quality: tightness Consistency: constant Improves With: nothing Worsens With: nothing Treatments Prior to Arrival: none <Kyaw Brennan - Last Filed: 05/27/23 15:50> - General Chief Complaint: Chest Pain Stated Complaint: Chest Pain w/L Arm Numbess Time Seen by Provider: 05/27/23 12:04 - History of Present Illness Initial Comments: Quick Note: This is a 63-year-old male who presents to the emergency department for chest pain. Patient states that over the last couple of days he has had pain in his neck and both shoulders. This morning he started to develop a centralized chest pressure. He then started to notice that a portion of his left arm seem to go numb. States that he previously had an MRI of his heart and was told that he likely had a heart attack at some point. Does not currently have any stents. States that they are in the process of scheduling a cardiac catheterization. He is on blood thinners. (Laney Marvin) - Related Data Home Medications Medication Instructions Recorded Confirmed Atorvastatin [Lipitor] 20 mg PO DAILY 11/15/19 09/01/22 PARoxetine HCL [Paxil] 40 mg PO QAM 11/15/19 09/01/22 buPROPion HCL [Wellbutrin XL] 150 mg PO QAM 11/15/19 09/01/22 lisinopriL [Zestril] 20 mg PO QAM 11/15/19 09/01/22 hydrOXYzine HCL 25 mg PO QAM 03/18/21 09/01/22 Apixaban [Eliquis Starter Pack 5 mg PO BID 09/01/22 09/01/22 (for VTE)] Semaglutide [Ozempic] 0.5 mg SQ ROJAS 09/01/22 09/01/22 Previous Rx's Medication Instructions Recorded Metoprolol Tartrate [Lopressor] 50 mg PO Q12H 30 Days #60 tab 04/09/21 HYDROcodone/APAP 7.5-325MG [[place] 1 - 2 each PO Q6HR PRN #36 tab 09/03/22 7.5] Sennosides/Docusate Sodium [Senna 1 each PO DAILY #20 capsule 09/03/22 Plus 8.6-50 mg Softgel] hydrOXYzine pamoate [Vistaril] 25 mg PO TID PRN #21 cap 09/03/22 Allergies Allergy/AdvReac Type Severity Reaction Status Date / Time No Known Allergies Allergy Verified 05/27/23 12:00 Review of Systems ROS Other: All systems not noted in ROS Statement are negative. <Laney Marvin - Last Filed: 05/27/23 12:06> ROS Other: All systems not noted in ROS Statement are negative. Constitutional: Denies: fever, chills Respiratory: Denies: cough, dyspnea Cardiovascular: Reports: chest pain. Denies: palpitations, orthopnea, edema, syncope Gastrointestinal: Denies: abdominal pain, nausea, vomiting Genitourinary: Denies: dysuria, hematuria Musculoskeletal: Reports: back pain Skin: Denies: rash Neurological: Denies: headache, weakness, numbness <Kyaw Brennan - Last Filed: 05/27/23 15:50> ROS Statement: Those systems with pertinent positive or pertinent negative responses have been documented in the HPI. EKG Findings - EKG Results: EKG: interpreted by ERMMaurisio, sinus rhythm (With frequent PVCs, rate 74 bpm), normal axis, normal QRS - Blocks, [place], Hypertrophy, ST Abn: Repolarization changes or abnormalities: nonspecific abnormality, ST segment, and/or T wave <Kyaw Brennan - Last Filed: 05/27/23 15:50> Past Medical History Past Medical History: Diabetes Mellitus, Hyperlipidemia, Hypertension, Osteoarthritis (OA), Sleep Apnea/CPAP/BIPAP Additional Past Medical History / Comment(s): no cpap used, left knee pain History of Any Multi-Drug Resistant Organisms: None Reported Past Surgical History: Heart Catheterization, Orthopedic Surgery Additional Past Surgical History / Comment(s): juno knee arthroscopies, multiple left hand surgeries after injury Past Anesthesia/Blood Transfusion Reactions: Motion Sickness, Postoperative Nausea & Vomiting (PONV) Additional Past Anesthesia/Blood Transfusion Reaction / Comment(s): motion sickness when younger Past Psychological History: Anxiety, Depression Smoking Status: Former smoker Past Alcohol Use History: Occasional Past Drug Use History: None Reported - Past Family History Mother Family Medical History: No Reported History <Laney Marvin - Last Filed: 05/27/23 12:06> General Exam Limitations: no limitations <Laney Marvin - Last Filed: 05/27/23 12:06> Limitations: no limitations General appearance: alert, in no apparent distress Head exam: Present: atraumatic, normocephalic Eye exam: Present: normal appearance. Absent: scleral icterus, conjunctival injection Neck exam: Present: normal inspection Respiratory exam: Present: normal lung sounds bilaterally. Absent: respiratory distress, wheezes, rales, rhonchi, stridor Cardiovascular Exam: Present: regular rate, normal rhythm, normal heart sounds. Absent: systolic murmur, diastolic murmur, rubs, gallop GI/Abdominal exam: Present: soft. Absent: distended, tenderness, guarding, rebound, rigid, mass Extremities exam: Present: normal inspection, normal capillary refill. Absent: pedal edema, calf tenderness Back exam: Present: normal inspection. Absent: CVA tenderness (R), CVA tende rness (L) Neurological exam: Present: alert Skin exam: Present: warm, dry, intact, normal color. Absent: rash <Kyaw Brennan - Last Filed: 05/27/23 15:50> - General Exam Comments Initial Comments: Visual Physical Exam Vital signs reviewed General: Well-appearing, nontoxic, no acute distress. Head: Normocephalic, atraumatic Eyes: PERRLA, EOMI ENT: Airway patent Chest: Nonlabored breathing Skin: No visual rash, normal skin tone Neuro: Alert and oriented 3 Musculoskeletal: No gross abnormalities (aLney Marvin) Course Vital Signs 05/27/23 11:56 Temperature 98.1 F Pulse Rate 74 Respiratory 18 Rate Blood Pressure 171/89 O2 Sat by Pulse 93 L Oximetry Chest Pain [facility] <Laney Marvin - Last Filed: 05/27/23 12:06> <Kyaw Brennan - Last Filed: 05/27/23 15:50> - [facility] I performed the QuickNote portion of this chart. Signed Laney Marvin PA-C. (Laney Marvin) The patient had chest x-ray which I interpreted to show no acute infiltrate, pneumothorax, congestive heart failure. (Kyaw Brennan) Disposition <Laney Marvin - Last Filed: 05/27/23 12:06> Is patient prescribed a controlled substance at d/c from ED?: No <Kyaw Brennan - Last Filed: 05/27/23 15:50> Clinical Impression: Chest pain Disposition: ADMITTED IP TO THIS HOSP Condition: Good Instructions (If sedation given, give patient instructions): Chest Pain (ED) Referrals: Lourdes Hinkle MD [Primary Care Provider] - 1-2 days
--- NOTE | 2023-05-27 12:39 | XR ---
EXAMINATION TYPE: XR chest 2V DATE OF EXAM: 05/27/2023 COMPARISON: 04/05/2021 HISTORY: 63-year-old male with chest pain TECHNIQUE: PA and lateral views FINDINGS: The cardiomediastinal silhouette, aorta, and pulmonary vasculature are within normal limits. Mild int erstitial prominence is unchanged. Otherwise, lungs and pleural spaces are clear. IMPRESSION: Chronic changes without acute cardiopulmonary process.
[2023-05-27 12:43] LABS: INR 0.9 (<1.2); Partial Thromboplastin Time 22.5 sec (22.0-30.0); Prothrombin Time 10.5 sec (10.0-12.5)
[2023-05-27 12:49] LABS: HGB 15.3 gm/dL (13.0-17.5); MCH 31.1 pg (25.0-35.0); MCHC 34.7 g/dL (31.0-37.0); MCV 89.6 fL (80.0-100.0); Mean Platelet Volume 9.7; Platelet Count 150 k/uL (150-450); RBC 4.91 m/uL (4.30-5.90); RDW 13.9 % (11.5-15.5); WBC 2.8 k/uL (3.8-10.6)
[2023-05-27 12:56] LABS: ALT 23 U/L (4-49); AST 25 U/L (17-59); African American GFR (CKD) >90 (>60 ml/min/1.73 sqM); Albumin 3.8 g/dL (3.5-5.0); Alkaline Phosphatase 96 U/L (38-126); Anion Gap 7 mmol/L; Blood Urea Nitrogen 14 mg/dL (9-20); Carbon Dioxide 24 mmol/L (22-30); Chloride 109 mmol/L (98-107); Glucose 133 mg/dL (74-99); Magnesium 1.9 mg/dL (1.6-2.3); Non-African American GFR(CKD) >90 (>60 ml/min/1.73 sqM); Potassium 3.8 mmol/L (3.5-5.1); Sodium 140 mmol/L (137-145); Total Bilirubin 0.6 mg/dL (0.2-1.3); Total Protein 6.8 g/dL (6.3-8.2)
[2023-05-27 13:18] LABS: Eosinophils # (M) 0.03 k/uL (0-0.7); Lymphocytes # (M) 1.79 k/uL (1.0-4.8); Monocytes # (M) 0.03 k/uL (0-1.0); Neutrophils # (M) 0.95 k/uL (1.3-7.7); Neutrophils % (M) 34 %; Nucleated Red Blood Cells 0 /100 WBC (0-0); Total Cells Counted 100
[2023-05-27] MEDS ORDERED: NITROGLYCERIN SL TABS 0.4 MG TAB SUBLINGUAL PRN (15:50)
[2023-05-27] MEDS: NITROGLYCERIN OINT 1 INCH/GM PACKET TOPICAL STA (15:58)
[2023-05-27] MEDS: ASPIRIN 81 MG PO STA (15:59)
[2023-05-27] MEDS ORDERED: DEXTROSE 50% SYRINGE 50 ML IVP PRN ×2 (16:55)
[2023-05-27] MEDS ORDERED: METOPROLOL TARTRATE 50 MG TAB PO SCH (18:00)
--- NOTE | 2023-05-27 18:08 | P.HPIM ---
History of Present Illness H&P Date: 05/27/23 History of Presenting Illness: Patient is a pleasant 63-year-old male with a past medical history of hypertension, hyperlipidemia, zll-[id number] diabetes mellitus, and previous DVT and PE. He presented to the emergency department with a chief complaint of midsternal chest pain radiating into bilateral shoulders and neck accompanied by headache. Patient reports it has been a stressful week with the and of his [id number]-hku. He reports he has been experiencing some pain in his neck and shoulders intermittently throughout the week. He reports that initially he just thought it was stress and may be a pulled muscle as he was a pallbearer at the , but reports today he began experiencing some pressure to his left anterior chest along with a mild headache and numbness of his entire left arm extending into his third fourth and fifth digits. He denies noticing weakness in his left arm, just states arm just feels numb and tingly making it feel strange to use. Patient states the pain in his chest r emained as a pressure-like sensation but the numbness he was experiencing in his arm was more disturbing. He describes this sensation as being similar to if he fell asleep on his arm but it did not improved. Patient reports pain to his chest is to left anterior chest and is described as a mild pressure. Patient reports he is on lifelong anticoagulation for previous DVT and PE and has not missed any doses of his Eliquis. He denies having any dizziness, lightheadedness, changes in vision or hearing, difficulties with or changes with his speech, dysphagia, palpitations, shortness of breath, cough or congestion, or experiencing any numbness/tingling/weakness in his lower extremities. He unde rwent full evaluation in the emergency department. Vital signs upon arrival show blood pressure 171/89, heart rate 74, respiratory rate 18, temp 98.1 F, and SpO2 of 93% on room air. EKG was completed showing normal sinus rhythm at 74 bpm with frequent PVCs. Chest x-ray completed negative for acute cardiopulmonary process. Labs completed and reviewed. CBC showing leukopenia with WBC count of 2.8 otherwise normal findings. BMP revealing mild hyperchloremia with chloride of 109 and glucose of 133. Liver profile unremarkable. Magnesium normal findings at 1.9. Troponin negative at less than 0.012. Patient was admitted under our services with consultation to cardiology. Review of systems: Pertinent positives and negatives as discussed in HPI, a complete review of systems was performed and all other systems are negative. Physical exam: Vital signs reviewed and stable. General: Nontoxic, no distress and appears stated age. Derm: Skin warm and dry, normal coloration for ethnicity. Head: Atraumatic, normocephalic and symmetric. Eyes: EOMs intact, no lid lag, and anicteric sclera Mouth: no lip lesions, mucus membranes moist Cardiovascular: regular rate and rhythm with normal S1S2, no murmur, positive posterior tibial pulses bilaterally, and cap refill < 2 seconds. Lungs: Respirations even, regular, and unlabored on room air. Lungs CTA bilaterally, no rhonchi, no rales, no wheezing, and no accessory muscle usage. Abdominal: soft, nontender to palpation, no guarding, no appreciable organomegaly Ext: ROM intact. No gross muscle atrophy, no edema, no contractures Neuro: Speech clear, face symmetrical and CN II-XII grossly intact with no noted focal neuro deficits Psych: Alert and oriented to person, place, time, and situation. Appropriate and pleasant affect. Assessment and Plan of Care: Chest pain, rule out acute coronary event Headache, neck pain, and left upper extremity numbness Hypertension Hyperlipidemia History of DVT and PE on lifelong anticoagulation -Cardiology consulted, appreciate recommendations -Telemetry monitoring -Headache, neck pain, and left upper extremity numbness/tingling possibly associated with chest pain, however will obtain CT head and cervical spine to ru le out neurologic process and/or cervical spinal stenosis -Trend troponins -Cardiac diet, NPO at midnight -Continue daily medication regimen with aspirin 81 mg daily, atorvastatin 40 mg daily, lisinopril 20 mg nightly, and metoprolol 50 mg daily -Lipid profile with a.m. labs. -Echocardiogram Bma-slvccab-pggjmgkgm diabetes mellitus -Hold Mounjaro and placed patient on glycemic protocol with NovoLog sliding scale. Data and imaging reviewed: As stated above in HPI CODE STATUS: Full code DVT prophylaxis: Eliquis Anticipated discharge date: 24 to [address]: Home Patient was seen independently by Nurse Practitioner. This document was prepared using [employer] dictation software. Please allow for errors in chief crna while rare they do occur. Patient seen independently by Cathleen BECK. I agree with the assessment and plan done by my colleague Cathleen ORTHOPEDIC CAST SPECIALIST. Past Medical History Past Medical History: Diabetes Mellitus, Hyperlipidemia, Hypertension, Osteoarthritis (OA), Sleep Apnea/CPAP/BIPAP Additional Past Medical History / Comment(s): no cpap used, left knee pain History of Any Multi-Drug Resistant Organisms: None Reported Past Surgical History: Heart Catheterization, Orthopedic Surgery Additional Past Surgical History / Comment(s): juno knee arthroscopies, multiple left hand surgeries after injury Past Anesthesia/Blood Transfusion Reactions: Motion Sickness, Postoperative Nausea & Vomiting (PONV) Additional Past Anesthesia/Blood Transfusion Reaction / Comment(s): motion sickness when younger Past Psychological History: Anxiety, Depression Smoking Status: Former smoker Past Alcohol Use History: Occasional Past Drug Use History: None Reported - Past Family History Mother Family Medical History: No Reported History Medications and Allergies Home Medications Medication Instructions Recorded Confirmed Type PARoxetine HCL [Paxil] 40 mg PO DAILY 11/15/19 05/27/23 History buPROPion HCL [Wellbutrin XL] 150 mg PO DAILY 11/15/19 05/27/23 History lisinopriL [Zestril] 20 mg PO HS 11/15/19 05/27/23 History hydrOXYzine HCL 25 mg PO DAILY 03/18/21 05/27/23 History Apixaban [Eliquis] 5 mg PO BID 05/27/23 05/27/23 History Atorvastatin [Lipitor] 40 mg PO DAILY 05/27/23 05/27/23 History Metoprolol Succinate (ER) [Toprol 50 mg PO DAILY 05/27/23 05/27/23 History XL] Tirzepatide [Mounjaro] 5 mg SQ TH 05/27/23 05/27/23 History Allergies Allergy/AdvReac Type Severity Reaction Status Date / Time No Known Allergies Allergy Verified 05/27/23 16:56 Physical Exam Vitals: Vital Signs Temp Pulse Resp BP Pulse Ox 05/27/23 11:56 98.1 F 74 18 171/89 93 L Intake and Output 05/27/23 05/27/23 05/27/23 06:59 14:59 22:59 Other: Weight 132.903 kg Results CBC & Chem 7: 05/28/23 05:55 05/28/23 05:55 Labs: Abnormal Lab Results - Last 24 Hours (Table) 02/28/24 02/28/24 Range/Units 12:08 12:08 WBC 2.8 L (3.8-10.6) k/uL Neutrophils # (Manual) 0.95 L (1.3-7.7) k/uL Chloride 109 H (98-107) mmol/L Glucose 133 H (74-99) mg/dL
[2023-05-27] MEDS: SODIUM CHLORIDE 0.9% 1,000 ML IV SCH (18:41)
[2023-05-27] MEDS: NITROGLYCERIN OINT 1 INCH/GM PACKET TOPICAL SCH (18:41)
--- NOTE | 2023-05-27 18:53 | CT ---
EXAMINATION TYPE: CT brain hortencia wo con DATE OF EXAM: 05/27/2023 COMPARISON: None HISTORY: 63-year-old male left arm numbness/headache CT DLP: 1925.4 mGycm Automated exposure control for dose reduction was used. Technique: Examination of the head was done in axial plane without intravenous contrast. Coronal and sagittal reconstructions performed. CT of the cervical spine was obtained in axial plane without intravenous injection of contrast mater ial. Coronal and sagittal reformatted images were obtained from the axial views for evaluation of f ractures, spinal alignment and canal. FINDINGS: Head: There is no evidence of acute intracranial hemorrhage, acute ischemic changes, mass, mass-effect, or extra-axial fluid collection. There is no effacement of cerebral sulci or basal subarachnoid cister ns. There is no hydrocephalus. There is no midline shift. Sapp-white matter distinction is preserv ed. Trace mucosal thickening ethmoid air cells. Leftward nasal septal deviation. Mastoid air cells well p neumatized. Orbits and globes are intact. Cervical spine: No craniocervical junction abnormality, predental space widening, or prevertebral soft tissue swellin g. Degenerative change at the C1 dens articulation. There is moderate spondylotic changes in the mid to lower cervical spine but with preserved alignment . Suspect multiple levels of probable moderate spinal canal stenoses mid and lower cervical spine. At C3-C4 and C4-C5, there is moderate right neural foraminal stenosis. At C5-C6, there is moderate to severe left and mild right neuroforaminal stenosis. No acute fracture of the cervical spine. Sagittal and coronal reformatted images confirm above findings. COMBINED IMPRESSION: 1. No acute intracranial abnormality seen. 2. Moderate multilevel spondylotic change of the cervical spine. Suspect multiple levels of moderate spinal canal stenosis mid and lower cervical spine. No acute fracture or malalignment.
[2023-05-27] MEDS: INSULIN ASPART (NovoLOG) 100 UNIT/ML VIAL SQ SCH (20:04)
[2023-05-27 20:44] LABS: Glucose,Whole Blood 117 mg/dL (70-110)
[2023-05-27] MEDS: lisinopriL 20 MG TAB PO SCH (21:14)
[2023-05-27] MEDS: APIXABAN 5 MG TAB PO SCH (21:14)
[2023-05-28 06:23] LABS: Glucose,Whole Blood 127 mg/dL (70-110)
--- NOTE | 2023-05-28 08:53 | CA ---
Transthoracic Echo Report Name: Brendan Mcintosh Age: 63 Gender: M : 1960 Exam Date: 05/27/2023 17:06 Exam Location: [facility] Ht (in): 72 Wt (lb): 293 Ordering Physician: Boris Connolly Attending/Referring Phys: Welfare Administrator Precious Plunkett RCS Procedure CPT: Indications: Evaluate structure and function Cardiac Hx: Technical Quality: Technically difficult study Contrast 1: Definity Total Dose (mL): 2 Contrast 2: Total Dose (mL): MEASUREMENTS (Male / Female) Normal Values 2D ECHO LVOT Diameter 2.7 cm Aortic Root Diameter 3.4 cm Ascending Aorta Diameter 3.5 cm DOPPLER AV Peak Velocity 109.2 cm/s AV Peak Gradient 4.8 mmHg AV Mean Velocity 70.0 cm/s AV Mean Gradient 2.3 mmHg AV Velocity Time Integral 20.1 cm LVOT Peak Velocity 95.1 cm/s LVOT Peak Gradient 3.6 mmHg LVOT Velocity Time Integral 19.7 cm LVOT Stroke Volume 112.2 cm??? LVOT Stroke Volume Index 44.8 ml/m??? LVOT Cardiac Index 2579.4 cm???/min???m??? AV Area Cont Eq vti 5.6 cm??? AV Area Cont Eq pk 5.0 cm??? Mitral E Point Velocity 41.8 cm/s Mitral A Point Velocity 55.1 cm/s Mitral E to A Ratio 0.8 MV Deceleration Time 230.3 ms MV E' Velocity 5.2 cm/s Mitral E to MV E' Ratio 8.1 PV Peak Velocity 133.6 cm/s PV Peak Gradient 7.1 mmHg FINDINGS Left Ventricle Left ventricular ejection fraction is estimated at 50-55 %. Left ventricular cavity size normal. Borderline reduced global left ventricular systolic function. Right Ventricle Right ventricle not well visualized. Right Atrium Normal right atrial size. Left Atrium Normal left atrial size. Mitral Valve Structurally normal mitral valve. No mitral stenosis. No evidence for mitral valve prolapse. Trace mitral regurgitation. Aortic Valve Trileaflet aortic valve. No aortic valve stenosis or regurgitation. Tricuspid Valve Structurally normal tricuspid valve. No tricuspid stenosis, regurgitation or prolapse. Pulmonic Valve Pulmonic valve not well visualized. No pulmonic stenosis. No pulmonic regurgitation. Pericardium No pericardial effusion. Aorta Normal size aortic root and proximal ascending aorta. CONCLUSIONS Normal LV function Mild mitral regurgitation Previewed by: Dr. Declan Valdes MD (Electronically Signed) Final Date: 28 May 2023 08:52
[2023-05-28] MEDS: ASPIRIN 81 MG PO SCH (08:55)
[2023-05-28] MEDS: hydrOXYzine HCL 25 MG TAB PO SCH (08:55)
[2023-05-28] MEDS: ATORVASTATIN 40 MG TAB PO SCH (08:55)
[2023-05-28] MEDS: buPROPion XL 150 MG TAB.ER.24H PO SCH (08:55)
[2023-05-28] MEDS: METOPROLOL SUCCINATE (ER) 50 MG TAB.ER.24H PO SCH (08:55)
[2023-05-28] MEDS: PARoxetine 20 MG TAB PO SCH (08:57)
[2023-05-28] MEDS ORDERED: lisinopriL 20 MG TAB PO SCH (09:00)
[2023-05-28] MEDS ORDERED: ATORVASTATIN 20 MG TAB PO SCH (09:00)
[2023-05-28] MEDS: SENNOSIDES-DOCUSATE SODIUM 1 EACH TAB PO SCH (09:00)
[2023-05-28] MEDS ORDERED: ASPIRIN 325 MG TAB PO SCH (09:00)
[2023-05-28] MEDS ORDERED: ALPRAZolam 0.5 MG TAB PO PRN (09:04)
[2023-05-28] MEDS ORDERED: NITROGLYCERIN SL TABS 0.4 MG TAB SUBLINGUAL PRN (09:04)
[2023-05-28] MEDS ORDERED: ALPRAZolam 0.25 MG TAB PO PRN (09:04)
--- NOTE | 2023-05-28 09:40 | P.CRDCN ---
History of Present Illness History of present illness: HISTORY OF PRESENT ILLNESS: This is a 63-year-old male with a past medical history significant for hypertension, hyperlipidemia, diabetes, obstructive sleep apnea, nonsustained VT, paroxysmal atrial fibrillation and DVT/PE. Patient follows in the office with Dr. Hernandez. We have been asked to see the patient in consultation for chest pain. Patient examined at the bedside. Patient states that yesterday morning while laying in bed he began to have chest discomfort. He states the pain was in the middle of his chest and went into his left arm. He also reports having some numbness in the left arm. He describes the pain as a pressure type sensation. He states the pain is not worse with deep inspiration or with chest wall palpation. He states the pain lasted for approximately 8 hours. He states when he came to the emergency room and received nitro paste his pain improved. He reports resolution of his chest pain with the second administration of Nitropaste. He denies any chest pain or pressure at the time of examination. The patient reports that he recently underwent a cardiac MRI and was in the process of being scheduled for a cardiac catheterization. He is a non-smoker. He states he quit smoking approximately 20 years ago. He reports occasional alcohol use of approximately 1-2 times a month. He denies any drug use including marijuana. Records from cardiology office reviewed. He underwent nuclear stress testing in July 2022 revealing small sized mild intensity fixed inferior wall defect secondary to soft tissue attenuation. No reversible perfusion defects noted. The patient also underwent a cardiac MRI in January 2023 revealing a moderate amount of subendocardial enhancement is present in the basal inferior and inferior lateral ortiz. Scar pattern is consistent with prior infarction. No evidence of sarcoidosis. Borderline normal left ventricular ejection fraction calculated at 49% with borderline normal longitudinal strain of 15%. Severely reduced right ventricular ejection fraction cavitated 35%. DIAGNOSTICS: - EKG reveals sinus mechanism with PVCs. Nonspecific ST-T wave changes. No signs of acute ischemia.. - Chest xray chronic changes without acute cardiopulmonary process. - Laboratory data: WBC 2.8. Hemoglobin 15.3. Platelet count 150. Sodium 140. Potassium 3.8. BUN 14. Creatinine 0.86. Magnesium 1.9. Troponin negative x 3 - Current home cardiac medications include lisinopril 20 mg at night, metoprolol succinate 50 mg daily, Lipitor 40 mg daily, and Eliquis 5 mg twice a day. - Echocardiogram obtained this admission reveals ejection fraction 50 to 55%, mild MR REVIEW OF SYSTEMS: At the time of my exam: CONSTITUTIONAL: Denies fever or chills. HEENT: Denies blurred vision, vision changes, or eye pain. Denies hemoptysis CARDIOVASCULAR: Denies chest pain. Denies orthopnea. Denies PND. Denies palpitations RESPIRATORY: Denies shortness of breath. GASTROINTESTINAL: Denies abdominal pain. Denies nausea or vomiting. HEMATOLOGIC: Denies bleeding disorders. GENITOURINARY: Denies any blood in urine. SKIN: Denies pruitis. Denies rash. PHYSICAL EXAM: VITAL SIGNS: Reviewed. GENERAL: Well-developed in no acute distress. HEENT: Head is normocephalic. Pupils are equal, round. Sclerae anicteric. Mucous membranes of the mouth are moist. Neck supple. No JVD or thyromegaly LUNGS: Respirations even and unlabored. Lungs essentially clear to auscultation bilaterally. HEART: Regular rate and rhythm. S1 and S2 heard. ABDOMEN: Soft. Nondistended. Nontender. EXTREMITIES: Normal range of motion. No clubbing or cyanosis. Peripheral pulses intact. No lower extremity edema NEUROLOGIC: Awake and alert. Oriented x 3. ASSESSMENT: Chest pain, troponin negative x 3 Subendocardial myocardial infarction, per recent outpatient cardiac MRI Hypertension Hyperlipidemia Obstructive sleep apnea, intolerant to CPAP History of nonsustained VT and frequent PVCs Diabetes Paroxysmal atrial fibrillation History of DVT/PE Morbid obesity: BMI 39.7 PLAN: An acute coronary event has been ruled out Resume home cardiac medications Hold Eliquis. Resume 05/29/2023 at 2100 N.p.[address]. at midnight Patient to undergo cardiac catheterization tomorrow with Dr. Valdes Further recommendations pending patient course Nurse practitioner note has been reviewed by physician. Signing provider agrees with the documented findings, assessment, and plan of care documented by CHANNEL MACHINE OPERATOR as a scribe. Past Medical History Past Medical History: Diabetes Mellitus, Deep Vein Thrombosis (DVT), Hyperlipidemia, Hypertension, Osteoarthritis (OA), Sleep Apnea/CPAP/BIPAP Additional Past Medical History / Comment(s): no cpap used, left knee pain History of Any Multi-Drug Resistant Organisms: None Reported Past Surgical History: Heart Catheterization, Orthopedic Surgery Additional Past Surgical History / Comment(s): juno knee arthroscopies, multiple left hand surgeries after injury Past Anesthesia/Blood Transfusion Reactions: Motion Sickness, Postoperative Nausea & Vomiting (PONV) Additional Past Anesthesia/Blood Transfusion Reaction / Comment(s): motion sickness when younger Past Psychological History: Anxiety, Depression Smoking Status: Former smoker Past Alcohol Use History: Occasional Additional Past Alcohol Use History / Comment(s): quit smoking 20 yrs ago, smoked for < 1 yr Past Drug Use History: None Reported - Past Family History Mother Family Medical History: No Reported History Medications and Allergies Home Medications Medication Instructions Recorded Confirmed Type PARoxetine HCL [Paxil] 40 mg PO DAILY 11/15/19 05/27/23 History buPROPion HCL [Wellbutrin XL] 150 mg PO DAILY 11/15/19 05/27/23 History lisinopriL [Zestril] 20 mg PO HS 11/15/19 05/27/23 History hydrOXYzine HCL 25 mg PO DAILY 03/18/21 05/27/23 History Apixaban [Eliquis] 5 mg PO BID 05/27/23 05/27/23 History Atorvastatin [Lipitor] 40 mg PO DAILY 05/27/23 05/27/23 History Metoprolol Succinate (ER) [Toprol 50 mg PO DAILY 05/27/23 05/27/23 History Xl] Tirzepatide [Mounjaro] 5 mg SQ TH 05/27/23 05/27/23 History Allergies Allergy/AdvReac Type Severity Reaction Status Date / Time No Known Allergies Allergy Verified 05/27/23 16:56 Physical Exam Vitals: Vital Signs Temp Pulse Pulse Resp BP BP Pulse Ox 05/28/23 02:47 97.6 F 68 19 100/65 95 05/28/23 02:00 68 05/27/23 21:14 62 05/27/23 19:30 98.0 F 62 18 146/89 97 05/27/23 18:00 60 20 124/81 96 05/27/23 11:56 98.1 F 74 18 171/89 93 L Intake and Output 05/27/23 05/28/23 05/28/23 22:59 06:59 14:59 Other: # Voids 1 1 Weight 132.903 kg Results 05/27/23 12:08 05/27/23 12:08 Cardiac Enzymes 02/05/27/23 05/27/23 Range/Units 12:08 12:08 16:19 AST 25 (17-59) U/L Troponin I <0.012 <0.012 (0.000-0.034) ng/mL 05/27/23 Range/Units 18:35 AST (17-59) U/L Troponin I <0.012 (0.000-0.034) ng/mL Coagulation 05/27/23 Range/Units 12:08 PT 10.5 (10.0-12.5) sec APTT 22.5 (22.0-30.0) sec CBC 05/27/23 Range/Units 12:08 WBC 2.8 L (3.8-10.6) k/uL RBC 4.91 (4.30-5.90) m/uL Hgb 15.3 (13.0-17.5) gm/dL Hct 44.0 (39.0-53.0) % Plt Count 150 (150-450) k/uL Comprehensive Metabolic Panel 05/27/23 Range/Units 12:08 Sodium 140 (137-145) mmol/L Potassium 3.8 (3.5-5.1) mmol/L Chloride 109 H (98-107) mmol/L Carbon Dioxide 24 (22-30) mmol/L BUN 14 (9-20) mg/dL Creatinine 0.86 (0.66-1.25) mg/dL Glucose 133 H (74-99) mg/dL Calcium 9.0 (8.4-10.2) mg/dL AST 25 (17-59) U/L ALT 23 (4-49) U/L Alkaline Phosphatase 96 (38-126) U/L Total Protein 6.8 (6.3-8.2) g/dL Albumin 3.8 (3.5-5.0) g/dL Current Medications Generic Name Dose Route Start Last Admin Trade Name Freq PRN Reason Stop Dose Admin Apixaban 5 mg 05/27/23 21:00 05/27/23 21:14 Apixaban 5 Mg Tab PO 5 mg BID [facility] Administration Aspirin 81 mg 05/28/23 09:00 Aspirin 81 Mg PO DAILY [facility] Atorvastatin Calcium 40 mg 05/28/23 09:00 Atorvastatin 40 Mg Tab PO DAILY [facility] Bupropion HCl 150 mg 05/28/23 09:00 Bupropion Xl 150 Mg Tab.Er.24h PO DAILY [facility] Dextrose/Water 25 ml 05/27/23 16:55 Dextrose 50% Syringe 50 Ml IVP PER PROTOCOL PRN Hypoglycemia Protocol Dextrose/Water 50 ml 05/27/23 16:55 Dextrose 50% Syringe 50 Ml IVP PER PROTOCOL PRN Hypoglycemia Protocol Hydroxyzine HCl 25 mg 05/28/23 09:00 Hydroxyzine Hcl 25 Mg Tab PO DAILY [facility] Sodium Chloride 1,000 mls @ 20 mls/hr 05/27/23 16:00 05/27/23 18:41 Saline 0.9% IV 20 mls/hr .Q24H SIDDHARTHA Administration Insulin Aspart 0 unit 05/27/23 17:30 05/28/23 06:27 Insulin Aspart (Novolog) 100 Unit/Ml Vial SQ Not Given ACHS [facility] Protocol Lisinopril 20 mg 05/27/23 21:00 05/27/23 21:14 Lisinopril 20 Mg Tab PO 20 mg HS SIDDHARTHA Administration Metoprolol Succinate 50 mg 05/28/23 09:00 Metoprolol Succinate (Er) 50 Mg Tab.Er.24h PO DAILY [facility] Nitroglycerin 0.4 mg 05/27/23 15:50 Nitroglycerin Sl Tabs 0.4 Mg Tab SUBLINGUAL Q5M PRN Chest Pain Nitroglycerin 1 inch 05/27/23 18:00 05/28/23 06:49 Nitroglycerin Oint 1 Inch/Gm Packet TOPICAL Not Given Q6HR [facility] Paroxetine HCl 40 mg 05/28/23 09:00 Paroxetine 20 Mg Tab PO DAILY [facility] Senna/Docusate Sodium 1 each 05/28/23 09:00 Sennosides-Docusate Sodium 1 Each Tab PO DAILY [facility] Intake and Output 05/27/23 05/28/23 05/28/23 22:59 06:59 14:59 Other: # Voids 1 1 Weight 132.903 kg 05/27/23 12:08 05/27/23 12:08
[2023-05-28 11:12] LABS: HCT 40.4 % (39.6-50.0); HGB 13.8 g/dL (13.0-17.0); MCH 31.1 pg (27.0-32.0); MCHC 34.2 g/dL (32.0-37.0); Mean Platelet Volume 10.9 FL (9.5-12.2); NRBC Per 100 WBC 0 X 10*3/uL (0.00-0.01); Platelet Count 145 X 10*3/uL (140-440); RBC 4.44 X 10*6/uL (4.40-5.60); RDW 13.2 % (11.5-14.5)
[2023-05-28 11:29] LABS: ALT 19 U/L (10-49); AST 23 U/L (14-35); Albumin 3.6 g/dL (3.8-4.9); Albumin/Globulin Ratio 1.33 Ratio (1.60-3.17); Alkaline Phosphatase 81 U/L (41-126); Blood Urea Nitrogen 14.7 mg/dL (9.0-27.0); Calcium 9.1 mg/dL (8.7-10.3); Carbon Dioxide 26.3 mmol/L (21.6-31.8); Chloride 106 mmol/L (96-109); Chol/HDL Ratio 5.69 Ratio; Globulin 2.7 g/dL (1.6-3.3); Glucose 120 mg/dL (70-110); Potassium 3.9 mmol/L (3.5-5.5); Sodium 143 mmol/L (135-145); Total Bilirubin 0.3 mg/dL (0.3-1.2); Total Protein 6.3 g/dL (6.2-8.2)
[2023-05-28 12:42] LABS: Glucose,Whole Blood 134 mg/dL (70-110)
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
[2023-05-28 17:39] LABS: Glucose,Whole Blood 143 mg/dL (70-110)
[2023-05-28 20:16] LABS: Glucose,Whole Blood 121 mg/dL (70-110)
[2023-05-29] MEDS: SODIUM CHLORIDE 0.9% 1,000 ML in EMPTY BAG 1 BAG IV SCH (02:00)
[2023-05-29] MEDS: ASPIRIN 325 MG TAB PO ONE (05:05)
[2023-05-29] MEDS: ATORVASTATIN 80 MG TAB PO ONE (05:05)
[2023-05-29 06:07] LABS: Glucose,Whole Blood 124 mg/dL (70-110)
[2023-05-29] MEDS ORDERED: HEPARIN SODIUM,PORCINE 10,000 UNIT in SODIUM CHLORIDE 0.9% 1,000 ML IRRIGATION PRN (07:00)
[2023-05-29] MEDS ORDERED: HEPARIN SODIUM,PORCINE (1 ML) 2,500 UNIT in SODIUM CHLORIDE 0.9% 250 ML IRRIGATION PRN (07:00)
[2023-05-29] MEDS ORDERED: LIDOCAINE 1% INJ 10MG/ML (20 ML MDV) ONE (10:19)
[2023-05-29] MEDS ORDERED: VERAPAMIL 2.5 MG/ML 2 ML AMP ONE (10:20)
[2023-05-29] MEDS: IV FLUID CONTINUATION 800 ML IV ONE (10:21)
[2023-05-29] MEDS ORDERED: fentaNYL (PF) 50 MCG/ML 2 ML AMP ONE (10:34)
[2023-05-29] MEDS ORDERED: HEPARIN SODIUM 1,000 UN/ML (10ML VL) ONE (10:34)
[2023-05-29] MEDS: MIDAZOLAM 2 MG/2 ML VIAL IVP ONE (11:19)
[2023-05-29] MEDS: fentaNYL (PF) 50 MCG/ML 2 ML AMP IVP ONE (11:20)
[2023-05-29] MEDS: LIDOCAINE 1% INJ 10MG/ML (20 ML MDV) SQ ONE ×2 (11:22→11:23)
[2023-05-29] MEDS: VERAPAMIL SYRINGE (5 MG/10 ML) INTRAARTER ONE (11:26)
[2023-05-29] MEDS: HEPARIN SODIUM 1,000 UN/ML (10ML VL) IV ONE (11:30)
[2023-05-29] MEDS: IOPAMIDOL-370 100ML BTL INJ ONE (11:34)
[2023-05-29] MEDS ORDERED: RX INFO: IV CONTRAST WAS GIVEN 1 EACH MISC MISCELLANE PRN (11:49)
[2023-05-29 12:37] LABS: Glucose,Whole Blood 97 mg/dL (70-110)
--- NOTE | 2023-05-29 13:20 | CC ---
CARDIAC CATHETERIZATION REPORT INDICATIONS: This is a 63-year-old gentleman, who presented to hospital with symptoms of unstable angina. He sees Dr. Hernandez in the office, who performed extensive workup on him including stress test, echocardiogram, and cardiac MRI. In the cardiac MRI, he had evidence of prior subendocardial myocardial infarction due to which he was supposed to undergo an outpatient cardiac cath, but because of a in the family, the cath was not done. The patient was advised to undergo cardiac catheterization for definitive evaluation of the coronary arteries. He had been explained of risks, benefits, and alternatives, understood and accepted. PROCEDURE NOTE: After obtaining informed consent, left heart catheterization and coronary angiogram were performed via the right radial artery using standard Krista catheters. The patient tolerated the procedure well without any obvious immediate complications, received moderate conscious sedation. Total sedation time was 15 minutes. Right radial artery access was obtained using Seldinger technique. A 6-Macedonian sheath was placed. Catheters and wires were floated into the ascending aorta under fluoroscopic guidance. The patient received verapamil and heparin per protocol. TR band will be used for hemostasis. FINDINGS: 1. Hemodynamics: Left ventricular end-diastolic pressure is 8 to 10 mm. There is no significant gradient across the aortic valve. 2. Left Ventriculogram: Left ventriculogram is not performed. 3. Angiographic Data: a.Right Coronary Artery: Right coronary artery is a large dominant vessel and is free of significant disease. Left main coronary artery is a normal-sized vessel and is free of stenosis. Divides into left anterior descending coronary artery and circumflex coronary artery. LAD and its branches, circumflex coronary artery and its branches are free of significant stenosis. CONCLUSIONS: 1. Normal left ventricular end-diastolic pressure. 2. Normal coronary arteries. PLAN: Patient's management is going to be in the form of risk factor modification, optimal medical therapy. MMODL / IJN: [id number] /
[2023-05-29 13:29] VITALS: RESP 16; TEMP 98.2
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
[2023-05-29 15:22] VITALS: BP 123/76
[2023-05-29 16:34] VITALS: PULSE 56
[2023-05-29] MEDS ORDERED: APIXABAN 5 MG TAB PO SCH (21:00)
== END 2023-05-29 17:17 | disposition home or self-care (01) ==
LOC: EC 11:55 → 6NMEDSUR 15:52
PROVIDERS: ADMIT Student in an Organized Health Care Education/Training Program; ATTEND Student in an Organized Health Care Education/Training Program
DX: R07.9 Chest pain, unspecified (principal); R51.9 Headache, unspecified; M54.2 Cervicalgia; R20.0 Anesthesia of skin; E11.9 Type 2 diabetes mellitus without complications; E78.5 Hyperlipidemia, unspecified; I10 Essential (primary) hypertension; G47.33 Obstructive sleep apnea (adult) (pediatric); F32.A Depression, unspecified; F41.9 Anxiety disorder, unspecified; I48.0 Paroxysmal atrial fibrillation; M48.02 Spinal stenosis, cervical region; I25.2 Old myocardial infarction; E66.01 Morbid (severe) obesity due to excess calories; Z68.39 Body mass index [BMI] 39.0-39.9, adult; Z86.711 Personal history of pulmonary embolism; Z86.718 Personal history of other venous thrombosis and embolism; Z87.891 Personal history of nicotine dependence; Z79.01 Long term (current) use of anticoagulants; Z79.85 Long-term (current) use of injectable non-insulin antidiabetic drugs; Z79.899 Other long term (current) drug therapy
CPT/HCPCS: 99285; 36415; 93005; 93306; 80061; 80053 ×2; 83735 ×2; 84484; 85025; 85027; 85610; 85730; 83036; 71046; 72125; 70450; G0378 ×3; J2250; J2001; J3010; Q9957; J1644; Q9967; 93458